=== PATIENT | male | born 1965 | race Caucasian/White ===

== ENCOUNTER 2018-08-14 14:41 | Emergency (ER) | payer BC, OTHER, SELFPAY ==
[2018-08-14 15:49] LABS: Absolute Lymphocytes (CBC) 0.8 K/uL (0.7-4.9); Absolute Monocytes 1.3 K/uL (0.1-1.3); Absolute Neutrophil 11.7 K/uL (1.8-8.0); Basophils % 0.4 % (0-1.3); Eosinophils % 0.4 % (0-4.4); Hematocrit 39.2 % (39.6-49.0); MCH 28.5 pg (27.0-35.0); MCV 83.9 fL (80-100); MPV 8.5 fL (7.6-11.3); Monocytes % 9.6 % (3.3-12.3); RBC Red Blood Cell Count 4.68 M/uL (4.33-5.43)
[2018-08-14 16:04] LABS: Protime INR 1.25
[2018-08-14 16:11] LABS: Albumin 2.7 g/dL (3.4-5.0); Bilirubin Direct 0.2 mg/dL (0-0.2); Bilirubin Total 0.6 mg/dL (0.2-1.0); Potassium 4.1 mmol/L (3.5-5.1); Protein, Total 7.3 g/dL (6.4-8.2)
[2018-08-14] MEDS ORDERED: INSULIN -REGULAR HUMAN 50 UNIT/0.5 ML ML ONE (16:39)
[2018-08-14] MEDS ORDERED: NA CHLORIDE 0.9% 1,000 ML ONE ×2 (16:40→19:39)
--- NOTE | 2018-08-14 16:47 | RAD REPORT ---
EXAM DESCRIPTION: CT - Thorax Wo Con - 08/14/2018 4:30 pm CLINICAL HISTORY: Anterior chest pain for 1 week, bypass surgery 2 months earlier COMPARISON: None. TECHNIQUE: Axial 5 mm thick images of the chest were obtained without IV contrast. All CT scans are performed using dose optimization technique as appropriate and may include automated exposure control or mA/KV adjustment according to patient size. FINDINGS: No focal mass or consolidation. Minimal atelectasis changes present in the lung bases. No pleural thickening or pleural effusion. No pneumothorax. No mediastinal or hilar lymphadenopathy. No pericardial effusion. No pericardial thickening or effusi on. No mediastinal or hilar lymphadenopathy. Sternotomy wires are in place. No fracture of the wiring. There is incomplete bony union across the s ternotomy site. Patient has soft tissue attenuation anteriorly along the sternotomy and along the manjula p margin in the anterior mediastinum. The as soft tissue is isodense to musculature. No air or foreig n body. No drainable fluid collections seen. Assessment is limited in the absence of IV contrast. No chest wall mass or abnormal axillary lymphadenopathy. IMPRESSION: Sternotomy surgical changes are present with incomplete bony union at the 2 months post surgical timeline. Prominent soft tissues along the superficial and deep margin of the sternotomy. Within this added sof t tissue there is no air, foreign body or drainable fluid collection.
[2018-08-14] MEDS ORDERED: VANCOMYCIN 1 GM/250 ML BAG ONE (17:34)
--- NOTE | 2018-08-14 17:47 | ER ---
Nurse's Notes [facility] Name: Samuel Felix Age: 53 yrs Sex: Male : 1965 Arrival Date: 08/14/2018 Time: 14:44 Bed 28 Private MD: Chencho Kang S Diagnosis: Cellulitis of chest wall;Acute kidney failure;Diabetes mellitus due to underlying condition with hyperglycemia Presentation: 08/14 14:52 Presenting complaint: Patient states: Redness and swelling to anterior chest x 1 week. hb Pt is 2 months s/p triple bypass. Transition of care: patient was not received from another setting of care. Onset of symptoms was August 09, 2018. Risk Assessment: Do you want to hurt yourself or someone else? Patient reports no desire to harm self or others. Care prior to arrival: None. 14:52 Method Of Arrival: Ambulatory hb 14:52 Acuity: OUMOU 3 hb 15:09 Initial Sepsis Screen: Does the patient meet any 2 criteria? No. Patient's initial rv sepsis screen is negative. Does the patient have a suspected source of infection? No. Patient's initial sepsis screen is negative. Historical: - Allergies: 14:54 No Known Allergies; hb - Home Meds: 17:09 Januvia oral 30mg oral 1 tab once daily [Active]; Lantus 30 Sub-Q 30 unit once a day rv [Active]; aspirin 81 mg Oral chew 1 tab once daily [Active]; - PMHx: 17:09 Diabetes - NIDDM; rv - PSHx: 14:54 Triple Bypass; hb - Immunization history:: Adult Immunizations up to date. - Social history:: Smoking status: Patient/guardian denies using tobacco. - Ebola Screening: : No symptoms or risks identified at this time. Screenin:09 Abuse screen: Denies threats or abuse. Denies injuries from another. Nutritional rv screening: No deficits noted. Tuberculosis screening: No symptoms or risk factors identified. Fall Risk None identified. Assessment: 15:06 General: Appears in no apparent distress. uncomfortable, Behavior is calm, cooperative. rv Pain: Complains of pain in chest Pain radiates to SHOULDERS. Neuro: Level of Consciousness is awake, alert, obeys commands, Oriented to person, place, time, situation. Cardiovascular: Capillary refill < 3 seconds. Respiratory: Airway is patent. GI: No signs and/or symptoms were reported involving the gastrointestinal system. : No signs and/or symptoms were reported regarding the genitourinary system. EENT: No signs and/or symptoms were reported regarding the EENT system. Derm: Skin is intact, Skin is red, Reports pain that is 10 out of 10 on a pain scale. Musculoskeletal: Reports pain in CHEST RADIATES TO SHOULDERS. 16:41 Reassessment: Patient appears in no apparent distress at this time. Patient and/or rv family updated on plan of care and expected duration. Pain level reassessed. Patient is alert, oriented x 3, equal unlabored respirations, skin warm/dry/pink. 17:35 Reassessment: Patient appears in no apparent distress at this time. Patient and/or rv family updated on plan of care and expected duration. Pain level reassessed. Patient is alert, oriented x 3, equal unlabored respirations, skin warm/dry/pink. 18:18 Reassessment: Patient appears in no apparent distress at this time. Patient and/or rv family updated on plan of care and expected duration. Pain level reassessed. Patient is alert, oriented x 3, equal unlabored respirations, skin warm/dry/pink. Vital Signs: 14:54 BP 150 / 79; Pulse 88; Resp 16; Temp 98.7; Pulse Ox 100% on R/A; Weight 96.16 kg; hb Height 6 ft. 2 in. (187.96 cm); Pain 10/10; 15:51 BP 144 / 90; Pulse 88 MON; Resp 23 S; Pulse Ox 100% on R/A; rv 16:40 BP 165 / 89; Pulse 90 MON; Resp 22 S; Pulse Ox 100% on R/A; rv 17:33 BP 170 / 103; Pulse 96 MON; Resp 24 S; Pulse Ox 99% on R/A; rv 18:17 BP 176 / 102; Pulse 96 MON; Resp 25 S; Pulse Ox 97% on R/A; rv 19:44 BP 156 / 90; Pulse 97; Resp 27 S; Pulse Ox 100% on R/A; rv 14:54 Body Mass Index 27.22 (96.16 kg, 187.96 cm) ED Course: 14:44 Patient arrived in ED. sb2 14:44 Chencho Kang MD is Private Physician. sb2 14:53 Triage completed. hb 14:54 Arm band placed on right wrist. hb 15:10 Patient has correct armband on for positive identification. Placed in gown. Bed in low rv position. Call light in reach. Side rails up X 1. Adult w/ patient. Pulse ox on. NIBP on. 15:13 Иван Nino PA is PHCP. cp 15:13 Carson Huff MD is Attending Physician. cp 15:42 Initial lab(s) drawn, by me, sent to lab. Inserted saline lock: 20 gauge in left rv forearm, using aseptic technique. Blood collected. 15:43 Radiology exam delayed due to lab results not completed at this time. (BUN/Creatinine). vr 16:[address] nj 16:31 Thorax Wo Con In Process Unspecified. EDMS 17:08 called and left a message with Dr. Marr's answering service at [phone] albino Marr to please call ED. 17:10 First set of blood cultures drawn by me. jp3 17:25 Second set of blood cultures drawn by me. Urine collected: clean catch specimen, clear, jp3 sky colored, Amount Voided: 1715mL. 17:46 Blood Culture Adult (2) Sent. jp3 17:47 called and initiated a transfer with Boo at the [facility]. eb 19:45 No provider procedures requiring assistance completed. Patient transferred, IV remains rv in place. intact. Administered Medications: 16:38 Drug: Insulin Regular Human 10 units {Co-Signature: kr2 (Love Landeros RN).} Route: IVP; rv Site: left forearm; 18:09 Follow up: Response: No adverse reaction rv 16:39 Drug: NS 0.9% 1000 ml Route: IV; Rate: 1 bolus; Site: left forearm; rv 18:09 Follow up: IV Status: Completed infusion; IV Intake: 1000ml rv 17:33 Drug: vancoMYCIN 1 grams Route: IVPB; Infused Over: 2 hrs; Site: left forearm; rv 19:44 Follow up: IV Status: Completed infusion rv 18:09 Drug: fentaNYL (PF) 50 mcg Route: IVP; Site: left forearm; rv 19:44 Follow up: Response: No adverse reaction rv 18:09 Drug: Zofran 4 mg Route: IVP; Site: left forearm; rv 19:43 Follow up: Response: No adverse reaction rv 19:43 Drug: NS 0.9% 1000 ml Route: IV; Rate: 100 ml/hr; Site: left forearm; rv 19:43 Follow up: IV Status: Infusion continued upon transfer rv Intake: 18:09 IV: 1000ml; Total: 1000ml. rv Outcome: 17:47 ER care complete, transfer ordered by cp 19:45 Transferred by ground EMS to [facility], Transfer form completed. X-rays rv sent w/ patient. 19:45 Condition: stable 19:45 Instructed on the need for transfer. 19:45 Patient left the ED. rv Addendum: 08/19/2018 11:35 Addendum: Culture Results: Positive blood culture. Phone call Attempt #1 results faxed h b to [facility] [phone]. Signatures: Dispatcher [employer] EDMS Elizabeth Lopez Corey, PA PA cp Baxter, Heather, JAIRO RN Sander Srivastava Sheri sb2 Dominique Gustafson Ronaldo, RN RN rv Otis Isaacs jp3 Love Landeros RN kr2 Corrections: (The following items were deleted from the chart) 08/14 15:52 15:51 BP 144 / 90; Pulse 88bpm; MonitorResp 27bpm; Spontaneous; Pulse Ox 100% RA; rv rv
--- NOTE | 2018-08-14 17:47 | EDPHYS ---
Physician Documentation [facility] Name: Samuel eFlix Age: 53 yrs Sex: Male : 1965 Arrival Date: 08/14/2018 Time: 14:44 Bed 28 Private MD: Chencho Kang S ED Physician Carson Huff HPI: 08/14 15:22 This 53 yrs old Male presents to ER via Ambulatory with complaints of RED cp KNOT ON CHEST. 15:22 the patient presents with a swollen area of the mid chest upper sternal area. cp 15:22 Description: erythematous, swollen, warm. Onset: The symptoms/episode began/occurred 1 cp week(s) ago. Associated signs and symptoms: Pertinent negatives: discharge, drainage, fever, shortness of breath, vomiting. Severity of symptoms: in the emergency department the symptoms are unchanged. The patient has been recently seen by a physician: the patient's primary care provider, with similar presenting complaints, X-rays were performed. Patient reports history of 3 vessel CABG done February 2018. Historical: - Allergies: 14:54 No Known Allergies; hb - Home Meds: 17:09 Januvia oral 30mg oral 1 tab once daily [Active]; Lantus 30 Sub-Q 30 unit once a day rv [Active]; aspirin 81 mg Oral chew 1 tab once daily [Active]; - PMHx: 17:09 Diabetes - NIDDM; rv - PSHx: 14:54 Triple Bypass; hb - Immunization history:: Adult Immunizations up to date. - Social history:: Smoking status: Patient/guardian denies using tobacco. - Ebola Screening: : No symptoms or risks identified at this time. ROS: 15:25 Constitutional: Negative for body aches, chills, fever. cp 15:25 Eyes: Negative for injury, pain, redness, and discharge. cp 15:25 Cardiovascular: Negative for palpitations. 15:25 Respiratory: Negative for cough, shortness of breath, wheezing. 15:25 Abdomen/GI: Negative for abdominal pain, vomiting, diarrhea, constipation. 15:25 Skin: Positive for swelling, of the chest. 15:25 All other systems are negative. Exam: 15:35 Constitutional: The patient appears in no acute distress, alert, awake, cp non-diaphoretic, non-toxic, well developed, well nourished. 15:35 Head/Face: Normocephalic, atraumatic. cp 15:35 Eyes: Periorbital structures: appear normal, Conjunctiva: normal, no exudate, no injection, Sclera: no appreciated abnormality, Lids and lashes: appear normal, bilaterally. 15:35 ENT: External ear(s): are unremarkable, Nose: is normal, Mouth: Lips: moist, Oral mucosa: moist, Posterior pharynx: Airway: no evidence of obstruction, patent. 15:35 Neck: ROM/movement: is normal, is supple, without pain, no range of motions limitations, no meningismus, no nuchal rigidity. 15:35 Chest/axilla: Inspection: cellulitis, of the mid-sternal area Palpation: crepitus, is not appreciated, tenderness, that is mild, of the mid-sternal area. 15:35 Cardiovascular: Rate: normal, Rhythm: regular, Edema: is not appreciated, JVD: is not appreciated. 15:35 Respiratory: the patient does not display signs of respiratory distress, Respirations: normal, no use of accessory muscles, no retractions, no splinting, no tachypnea, labored breathing, is not present, Breath sounds: are clear throughout, no decreased breath sounds, no stridor, no wheezing. 15:35 Abdomen/GI: Inspection: abdomen appears normal, Palpation: abdomen is soft and non-tender, in all quadrants, rebound tenderness, is not appreciated, voluntary guarding, is not appreciated, involuntary guarding, is not appreciated. 15:35 Back: pain, is absent, ROM is normal. 15:35 Neuro: Orientation: to person, place \T\ time. Mentation: lucid, able to follow commands, Cerebellar function: is grossly normal, Motor: moves all fours, strength is normal, Sensation: is normal. Vital Signs: 14:54 BP 150 / 79; Pulse 88; Resp 16; Temp 98.7; Pulse Ox 100% on R/A; Weight 96.16 kg; hb Height 6 ft. 2 in. (187.96 cm); Pain 10/10; 15:51 BP 144 / 90; Pulse 88 MON; Resp 23 S; Pulse Ox 100% on R/A; rv 16:40 BP 165 / 89; Pulse 90 MON; Resp 22 S; Pulse Ox 100% on R/A; rv 17:33 BP 170 / 103; Pulse 96 MON; Resp 24 S; Pulse Ox 99% on R/A; rv 18:17 BP 176 / 102; Pulse 96 MON; Resp 25 S; Pulse Ox 97% on R/A; rv 19:44 BP 156 / 90; Pulse 97; Resp 27 S; Pulse Ox 100% on R/A; rv 14:54 Body Mass Index 27.22 (96.16 kg, 187.96 cm) hb MDM: 15:13 Patient medically screened. cp 16:00 Differential diagnosis: abscess, cellulitis, sepsis, osteomyelitis, seroma. cp 17:30 Data reviewed: vital signs, nurses notes, lab test result(s), radiologic studies, CT cp scan, and as a result, I will transfer patient. 17:35 ED course: Spoke with PA on-call for DR Sriram Marr, [facility], concerning exam and cp results of labs and CT. Will call back to discuss further care. 08/14 15:24 Order name: Basic Metabolic Panel; Complete Time: 16:18 cp 08/14 16:18 Interpretation: Normal except: NA 131; GLUC 479; BUN 36; CRE 2.00; GFR 35. cp 08/14 15:24 Order name: CBC with Diff; Complete Time: 16:16 cp 08/14 16:16 Interpretation: Normal except: WBC 14.0; HGB 13.3; HCT 39.2; CHRISTOFER% 83.6; LYM% 6.0; NEUT cp A 11.7. 08/14 15:24 Order name: LFT's; Complete Time: 16:18 cp 08/14 16:52 Interpretation: Normal except: ALK 166; ALB 2.7; GLOB 4.6; A/G 0.6. cp 08/14 15:24 Order name: PT-INR; Complete Time: 16:16 cp 08/14 16:17 Interpretation: Abnormal: PT 14.8. 08/14 17:00 Order name: Blood Culture Adult (2) cp 08/14 17:28 Order name: Urine Dipstick--Ancillary (enter results); Complete Time: 17:55 gm 08/14 17:56 Interpretation: Normal except: UBLD TRACE; UPROT 1+. cp 08/14 16:19 Order name: Thorax Wo Con; Complete Time: 16:50 EDMS 08/14 15:24 Order name: Cardiac monitoring; Complete Time: 15:41 cp 08/14 15:24 Order name: IV Saline Lock; Complete Time: 15:41 cp 08/14 15:24 Order name: Labs collected and sent; Complete Time: 15:41 cp 08/14 15:24 Order name: O2 Per Protocol; Complete Time: 15:42 cp 08/14 15:24 Order name: O2 Sat Monitoring; Complete Time: 15:42 cp Administered Medications: 16:38 Drug: Insulin Regular Human 10 units {Co-Signature: kr2 (Love Landeros RN).} Route: IVP; rv Site: left forearm; 18:09 Follow up: Response: No adverse reaction rv 16:39 Drug: NS 0.9% 1000 ml Route: IV; Rate: 1 bolus; Site: left forearm; rv 18:09 Follow up: IV Status: Completed infusion; IV Intake: 1000ml rv 17:33 Drug: vancoMYCIN 1 grams Route: IVPB; Infused Over: 2 hrs; Site: left forearm; rv 19:44 Follow up: IV Status: Completed infusion rv 18:09 Drug: fentaNYL (PF) 50 mcg Route: IVP; Site: left forearm; rv 19:44 Follow up: Response: No adverse reaction rv 18:09 Drug: Zofran 4 mg Route: IVP; Site: left forearm; rv 19:43 Follow up: Response: No adverse reaction rv 19:43 Drug: NS 0.9% 1000 ml Route: IV; Rate: 100 ml/hr; Site: left forearm; rv 19:43 Follow up: IV Status: Infusion continued upon transfer rv Disposition: 08/15 10:09 Co-signature as Attending Physician, Carson Huff MD I agree with the assessment and kdr plan of care. Disposition: 08/14/18 17:47 Transfer ordered to [facility]. Diagnosis are Cellulitis of chest wall, Acute kidney failure, Diabetes mellitus due to underlying condition with hyperglycemia. - Reason for transfer: Higher level of care. - Accepting physician is DR En Drake. - Condition is Stable. - Problem is new. - Symptoms have improved. Signatures: Dispatcher [employer] EDHI Carson Huff MD MD kdr Page, Corey, PA PA cp Bridgett Solomon RN RN Lopez Walters RN RN rv Love Landeros RN kr2 Corrections: (The following items were deleted from the chart) 08/14 16:19 15:24 Thorax W/ Con+CT.RAD.BRZ ordered. EDHI EDMS 17:48 17:47 08/14/2018 17:47 Transfer ordered to [facility]. Diagnosis is cp Cellulitis of chest wall. Reason for transfer: Higher level of care. Accepting physician is DR En Drake. Condition is Stable. Problem is new. Symptoms have improved. cp 19:45 17:48 08/14/2018 17:47 Transfer ordered to [facility]. Diagnosis is rv Cellulitis of chest wall; Acute kidney failure; Diabetes mellitus due to underlying condition with hyperglycemia. Reason for transfer: Higher level of care. Accepting physician is DR En Drake. Condition is Stable. Problem is new. Symptoms have improved. cp
[2018-08-14 17:54] LABS: Urine Blood TRACE (NEG); Urine Glucose 3+ (NEG); Urine Protein 1+ (NEG); Urine pH 5.5 (5.0-7.0)
[2018-08-14] MEDS ORDERED: FENTANYL CITR 100 MCG/2 ML ONE (18:13)
[2018-08-14] MEDS ORDERED: ONDANSETRON 4 MG/2 ML VIAL ONE (18:13)
== END 2018-08-14 19:45 | disposition short-term general hospital (02) ==
LOC: ER 14:41
DX: L03.313 Cellulitis of chest wall (principal); N17.9 Acute kidney failure, unspecified; E11.65 Type 2 diabetes mellitus with hyperglycemia; Z79.4 Long term (current) use of insulin; Z79.82 Long term (current) use of aspirin; Z95.1 Presence of aortocoronary bypass graft
CPT/HCPCS: 36415; 71250; 80048; 80076; 81003; 82962; 85025; 85610; 87040; 87077; 87186; 87205; 96361; 96365; 96366; 96375; 99285; J2405; J3010; J3370; J7030

== ENCOUNTER 2023-03-10 07:47 | Emergency (ER) | payer BC ==
--- OUTSIDE RECORDS SUMMARY | 2023-03-10 07:52 | XMS REPORT | Continuity of Care Document ---
:1965 Author Organization [facility] t Address [address] [facility] [address] [place] [address] Care Team Providers Name Role Phone Prince Collazo MD Primary Care Physician PRINCE COLLAZO Attending Clinician Unavailable Vale KING, Prince Attending Clinician 2, [facility] Attending Clinician Unavailable Johnny Branch MD Attending Clinician Doctor Unassigned, [place] Attending Clinician Unavailable Payers Payer Name Policy Type Policy Number Effective Date Expiration Date S [facility] [id number] 2015 00:00:00 Problems Condition Condition Condition Status Onset Resolution Last Treating Co mments Source Name Details Category Date Date Treatment Clinician Date Abscess of Abscess of Disease Active 2017-10 M ethodi sternal sternal 10-14 region region 00:00: Hospita 00 l Atelectasi Atelectasi Disease Active 2018-0 M ethodi s s 05-06 00:00: Hospita 00 l S/P CABG x S/P CABG x Disease Active 0 M ethodi 3 3 05-05 00:00: Hospita 00 l CKD CKD Disease Active Methodi (chronic (chronic 05-05 kidney kidney 00:00: Hospita disease) disease) 00 l stage 2, stage 2, GFR 60-89 GFR 60-89 ml/min ml/min Thrombocyt Thrombocyt Disease Active 2017-0 M ethodi openia openia 05-05 00:00: Hospita 00 l Postoperat Postoperat Disease Active M ethodi angelo anemia angelo anemia 05-05 st due to due to 00:00: Hospita acute acute 00 l blood loss blood loss 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 05-04 st mellitus mellitus 00:00: Hospit a with with 00 l nephropath nephropath y y Mixed Mixed Disease Active Methodi hyperlipid hyperlipid 05-04 st emia emia 00:00: Hospita 00 l 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 05-03 st mellitus mellitus 00:00: Hospit a with with 00 l hyperglyce hyperglyce jinny jinny 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 [place] [facility] [place] [facility] 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 Essential Essential Disease Active Met hodi hypertensi hypertensi 05-03 st on on 00:00: Hospita 00 l SOB SOB Disease Active Methodi (shortness (shortness 05-02 st of breath) of breath) 00:00: Ho spita 00 l Abnormal Abnormal Disease Active Unive rs EKG EKG 06-07 ity of 00:00: [place] [address] Medical Branch Essential Essential Disease Active Uni vers hypertensi hypertensi 06-07 it y of on on 00:00: [place] [address] Medical Branch Dizziness Dizziness Disease Active Uni vers 06-07 ity of 00:00: [place] [address] Medical Branch Diabetes Diabetes Disease Active Unive rs 09 ity of 00:00: [place] [address] Medical Branch Allergies, Adverse Reactions, Alerts Allergy Allergy Status Severity Reaction(s) Onset Inactive Treating Comm ents Source Name Type Date Date Clinician NO KNOWN Drug Active Univers ALLERGIE Class ity of [facility] Social History Social Habit Start Date Stop Date Quantity Comments Source History SDOH University o f Alcohol Frequency [place] [facility] History SDPA University o f Alcohol Std Drinks [facility] History [facility] University o f Alcohol Binge [facility] [place] [facility] Gender identity [facility] Sexual orientation [facility] History of tobacco Current smoker [facility] Exposure to 2023-01-21 2023-01-31 Not sure University of SARS-CoV-2 (event) 00:00:00 06:50:00 [facility] History of Social 2019-05-28 2019-05-[address] function 00:00:00 00:00:00 Hospital Alcohol intake 2018-09-10 2018-09-10 Current drinker [facility] Alcohol Comment 2018-05-01 2018-05-01 "social drinker" Met [facility] 00:00:00 00:00:00 Hospital Tobacco use and 2016-02-13 2016-02-13 Smokeless Universit y of exposure 00:00:00 00:00:00 tobacco non-user [facility] [place] [facility] Sex Ass[birth year] [facility] 00:[facility]00 Hospital Smoking Status Start Date Stop Date Source Ex-smoker 2018-09-10 00:00:00 2018-09-10 00:00:00 [facility] Never smoked tobacco [facility] Medications Ordered Filled Start Stop Current Ordering Indication Dosage Frequency Signature Comments Components Source Medication Medication Date Date Medication? Clinician (SIG) Name Name SITagliptin Yes [id number] 50mg Take 1 Univers phosphate 5-25 tablet by ity o f (JANUVIA) 00:00: mouth [place] 50 mg 00 every Medical tablet morning. Branch MUST BE SEEN FOR FURTHER REFILLS AND LABS glimepiride 2022-0 Yes [id number] 4mg Take 1 Univers 4 mg tablet 5-25 tablet by ity of 00:00: mouth [place] 00 daily with Medical breakfast. Branch MUST BE SEEN FOR FURTHER REFILLS AND LABS SITagliptin 2022-0 Yes [id number] 50mg Take 1 Univers phosphate 4-27 tablet by ity o f (JANUVIA) 00:00: mouth [place] 50 mg 00 every Medical tablet morning. Branch MUST BE SEEN FOR FURTHER REFILLS AND LABS metoprolol 2022-0 Yes [id number] 25mg Take 1 U nivers tartrate 25 4-27 tablet by ity of mg tablet 00:00: [place] 00 the Medical morning Branch and 1 tablet in the evening. glimepiride 2022-0 Yes [id number] 4mg Take 1 Univers 4 mg tablet 4-27 tablet by ity of 00:00: mouth [place] 00 daily with Medical breakfast. Branch MUST BE SEEN FOR FURTHER REFILLS AND LABS dapaglifloz 2023-0 Yes [id number] 10mg Take 1 Univers in 4-27 tablet by ity of (FARXIGA) 00:00: [place] 10 mg 00 the Medical tablet morning. Branch SITagliptin 2023-0 Yes [id number] 50mg Take 1 Univers phosphate 4-27 tablet by ity o f (OCTUVIA) 00:00: mouth [place] 50 mg 00 every Medical tablet morning. Branch MUST BE SEEN FOR FURTHER REFILLS AND LABS metoprolol 2023-0 Yes [id number] 25mg Take 1 U nivers tartrate 25 4-27 tablet by ity of mg tablet 00:00: [place] 00 the Medical morning Branch and 1 tablet in the evening. glimepiride 2023-0 Yes [id number] 4mg Take 1 Univers 4 mg tablet 4-27 tablet by ity of 00:00: mouth [place] 00 daily with Medical breakfast. Branch MUST BE SEEN FOR FURTHER REFILLS AND LABS dapaglifloz 2023-0 Yes [id number] 10mg Take 1 Univers in 4-27 tablet by ity of (FARXIGA) 00:00: mouth [place] 10 mg 00 the Medical tablet morning. Branch metoprolol 3-0 Yes [id number] 25mg Take 1 U nivers tartrate 25 4-27 tablet by ity of mg tablet 00:00: [place] 00 the Medical morning Branch and 1 tablet in the evening. dapaglifloz 2023-0 Yes [id number] 10mg Take 1 Univers in 4-27 tablet by ity of (FARXIGA) 00:00: [place] 10 mg 00 the Medical tablet morning. Branch SITagliptin 2023-0 Yes [id number] 50mg Take 1 Univers phosphate 4-27 tablet by ity o f (OCTUVIA) 00:00: mouth [place] 50 mg 00 every Medical tablet morning. Branch MUST BE SEEN FOR FURTHER REFILLS AND LABS metoprolol 3-0 Yes [id number] 25mg Take 1 U nivers tartrate 25 4-27 tablet by ity of mg tablet 00:00: mouth [place] 00 the Medical morning Branch and 1 tablet in the evening. glimepiride 2023-0 Yes [id number] 4mg Take 1 Univers 4 mg tablet 4-27 tablet by ity of 00:00: mouth [place] 00 daily with Medical breakfast. Branch MUST BE SEEN FOR FURTHER REFILLS AND LABS dapaglifloz 2022-0 Yes [id number] 10mg Take 1 Univers in 4-27 tablet by ity of (XI) 00:00: mouth [place] 10 mg 00 the Medical tablet morning. Branch SITagliptin 2022-0 2023- No [id number] 50mg Take 1 Univers phosphate 4-27 05-25 tablet by ity of (OCTUVIA) 00:00: 00:00 mouth [place] 50 mg 00 :00 every Medical tablet morning. Branch MUST BE SEEN FOR FURTHER REFILLS AND LABS glimepiride 2022-0 2022- No [id number] 4mg Take 1 Univers 4 mg tablet 4-27 05-25 tablet by it y of 00:00: 00:00 mouth [place] 00 :00 daily with Medical breakfast. Branch MUST BE SEEN FOR FURTHER REFILLS AND LABS glimepiride 2022-0 Yes [id number] 4mg Take 1 Univers 4 mg tablet 4-19 tablet by ity of 00:00: mouth [place] 00 daily with Medical breakfast. Branch MUST BE SEEN FOR FURTHER REFILLS AND LABS SITagliptin 2022-0 Yes [id number] 50mg Take 1 Univers phosphate 4-19 tablet by ity o f (OCTUVIA) 00:00: mouth [place] 50 mg 00 every Medical tablet morning. Branch MUST BE SEEN FOR FURTHER REFILLS AND LABS glimepiride 2022-0 Yes [id number] 4mg Take 1 Univers 4 mg tablet 4-19 tablet by ity of 00:00: mouth [place] 00 daily with Medical breakfast. Branch MUST BE SEEN FOR FURTHER REFILLS AND LABS SITagliptin 2022-0 Yes [id number] 50mg Take 1 Univers phosphate 4-19 tablet by ity o f (OCTUVIA) 00:00: mouth [place] 50 mg 00 every Medical tablet morning. Branch MUST BE SEEN FOR FURTHER REFILLS AND LABS glimepiride 2022-0 Yes [id number] 4mg Take 1 Univers 4 mg tablet 4-19 tablet by ity of 00:00: mouth [place] 00 daily with Medical breakfast. Branch MUST BE SEEN FOR FURTHER REFILLS AND LABS SITagliptin 2022-0 Yes [id number] 50mg Take 1 Univers phosphate 4-19 tablet by ity o f (OCTUVIA) 00:00: mouth [place] 50 mg 00 every Medical tablet morning. Branch MUST BE SEEN FOR FURTHER REFILLS AND LABS glimepiride 2022- No [id number] 4mg Take 1 Univers 4 mg tablet 01-23 tablet by it y of 00:00: 00:00 mouth [place] 00 :00 daily with Medical breakfast. Branch MUST BE SEEN FOR FURTHER REFILLS AND LABS SITagliptin 2022- No [id number] 50mg Take 1 Univers phosphate 01-23 tablet by ity of (JANUVIA) 00:00: 00:00 mouth [place] 50 mg 00 :00 every Medical tablet morning. Branch MUST BE SEEN FOR FURTHER REFILLS AND LABS glimepiride 2022- No [id number] 4mg Take 1 Univers 4 mg tablet 01-23 tablet by it y of 00:00: 00:00 mouth [place] 00 :00 daily with Medical breakfast. Branch MUST BE SEEN FOR FURTHER REFILLS AND LABS SITagliptin 2022- No [id number] 50mg Take 1 Univers phosphate 01-23 tablet by ity of (JANUVIA) 00:00: 00:00 mouth [place] 50 mg 00 :00 every Medical tablet morning. Branch MUST BE SEEN FOR FURTHER REFILLS AND LABS METOPROLOL 0 Yes [id number] TAKE 1 U nivers TARTRATE 25 3-08 TABLET BY ity of mg tablet 00:00: MOUTH [place] 00 TWICE Medical DAILY Branch METOPROLOL 2022-0 Yes [id number] TAKE 1 U nivers TARTRATE 25 3-08 TABLET BY ity of mg tablet 00:00: MOUTH 00 TWICE Medical DAILY Branch METOPROLOL 2022-0 Yes [id number] TAKE 1 U nivers TARTRATE 25 3-08 TABLET BY ity of mg tablet 00:00: MOUTH [place] 00 TWICE Medical DAILY Branch METOPROLOL 2022-0 Yes [id number] TAKE 1 U nivers TARTRATE 25 3-08 TABLET BY ity of mg tablet 00:00: MOUTH [place] 00 TWICE Medical DAILY Branch METOPROLOL 2022-0 Yes [id number] TAKE 1 U nivers TARTRATE 25 3-08 TABLET BY ity of mg tablet 00:00: MOUTH 00 TWICE Medical DAILY Branch METOPROLOL 2022-0 202- No [id number] TAKE 1 Univers TARTRATE 25 3-08 04-27 TABLET BY it y of mg tablet 00:00: 00:00 MOUTH [place] 00 :00 TWICE Medical DAILY Branch METOPROLOL 2022-0 3- No [id number] TAKE 1 Univers TARTRATE 25 3-05 10-27 TABLET BY it y of mg tablet 00:00: 00:00 MOUTH [place] 00 :00 TWICE Medical DAILY Branch GLIMEPIRIDE 2022-0 Yes [id number] 4mg TAKE 1 Univers 4 mg tablet 1-18 TABLET BY ity of 00:00: MOUTH [place] 00 DAILY WITH Medical BREAKFAST Branch [place] [address] 2022-0 Yes [id number] TAKE 1 U nivers mg tablet 1-18 TABLET BY ity o f 00:00: MOUTH [place] 00 EVERY Medical MORNING Branch GLIMEPIRIDE 2022-0 Yes [id number] 4mg TAKE 1 Univers 4 mg tablet 1-18 TABLET BY ity of 00:00: MOUTH [place] 00 DAILY WITH Medical BREAKFAST Branch [place] [address] 2022-0 Yes [id number] TAKE 1 U nivers mg tablet 1-18 TABLET BY ity o f 00:00: MOUTH [place] 00 EVERY Medical MORNING Branch GLIMEPIRIDE 2022-0 Yes [id number] 4mg TAKE 1 Univers 4 mg tablet 1-18 TABLET BY ity of 00:00: MOUTH [place] 00 DAILY WITH Medical BREAKFAST Branch [place] [address] 0 Yes [id number] TAKE 1 U nivers mg tablet 1-18 TABLET BY ity o f 00:00: MOUTH [place] 00 EVERY Medical MORNING Branch GLIMEPIRIDE 2022-0 2022- No [id number] 4mg TAKE 1 Univers 4 mg tablet 1-18 04-19 TABLET BY it y of 00:00: 00:00 MOUTH [place] 00 :00 DAILY WITH Medical BREAKFAST Branch [place] [address] 2022-0 202- No [id number] TAKE 1 Univers mg tablet 1-18 04-19 TABLET BY ity of 00:00: 00:00 MOUTH [place] 00 :00 EVERY Medical MORNING Branch GLIMEPIRIDE 2021-10 Yes [id number] 4mg TAKE 1 Univers 4 mg tablet 0-17 TABLET BY ity of 00:00: MOUTH [place] 00 DAILY WITH Medical BREAKFAST Branch [place] [address] 2021-10 Yes [id number] TAKE 1 U nivers mg tablet 0-17 TABLET BY ity o f 00:00: MOUTH [place] 00 EVERY Medical MORNING Branch GLIMEPIRIDE 2021-10- No [id number] 4mg TAKE 1 Univers 4 mg tablet 0-17 -18 TABLET BY it y of 00:00: 00:00 MOUTH [place] 00 :00 DAILY WITH Medical BREAKFAST Branch SHAILESH 50 2021-10- No [id number] TAKE 1 Univers mg tablet 0-17 -18 TABLET BY ity of 00:00: 00:00 MOUTH [place] 00 :00 EVERY Medical MORNING Branch GLIMEPIRIDE 0 Yes [id number] 4mg TAKE 1 Univers 4 mg tablet -19 TABLET BY ity of 00:00: MOUTH [place] 00 DAILY WITH Medical BREAKFAST Branch SHAGGYSILVINA 50 0 Yes [id number] TAKE 1 U nivers mg tablet 7-19 TABLET BY ity o f 00:00: MOUTH [place] 00 EVERY Medical MORNING Branch GLIMEPIRIDE 2021- No [id number] 4mg TAKE 1 Univers 4 mg tablet 04-24 TABLET BY it y of 00:00: 00:00 MOUTH [place] 00 :00 DAILY WITH Medical BREAKFAST Branch SHAILESH 2021- No [id number] TAKE 1 Univers mg tablet 04-24 TABLET BY ity of 00:00: 00:00 MOUTH [place] 00 :00 EVERY Medical MORNING Branch METOPROLOL 0 Yes [id number] TAKE 1 U nivers TARTRATE 25 4-27 TABLET BY ity of mg tablet 00:00: MOUTH [place] 00 TWICE Medical DAILY Branch METOPROLOL 0 Yes [id number] TAKE 1 U nivers TARTRATE 25 4-27 TABLET BY ity of mg tablet 00:00: MOUTH [place] 00 TWICE Medical DAILY Branch METOPROLOL 2021-0 Yes [id number] TAKE 1 U nivers TARTRATE 25 4-27 TABLET BY ity of mg tablet 00:00: MOUTH [place] 00 TWICE Medical DAILY Branch METOPROLOL 2021-0 Yes [id number] TAKE 1 U nivers TARTRATE 25 4-27 TABLET BY ity of mg tablet 00:00: MOUTH [place] 00 TWICE Medical DAILY Branch METOPROLOL 2021-0 Yes [id number] TAKE 1 U nivers TARTRATE 25 4-27 TABLET BY ity of mg tablet 00:00: MOUTH [place] 00 TWICE Medical DAILY Branch METOPROLOL 2021-0 Yes [id number] TAKE 1 U nivers TARTRATE 25 4-27 TABLET BY ity of mg tablet 00:00: MOUTH [place] 00 TWICE Medical DAILY Branch METOPROLOL 0 2022- No [id number] TAKE 1 Univers TARTRATE 25 4-27 03-08 TABLET BY it y of mg tablet 00:00: 00:00 MOUTH [place] 00 :00 TWICE Medical DAILY Branch SHAGGYUVIA 50 0 Yes [id number] TAKE 1 U nivers mg tablet 4-20 TABLET BY ity o f 00:00: MOUTH [place] 00 EVERY Medical MORNING Branch GLIMEPIRIDE 0 Yes [id number] 4mg TAKE 1 Univers 4 mg tablet 4-20 TABLET BY ity of 00:00: MOUTH [place] 00 DAILY WITH Medical BREAKFAST Branch [facility] 50 Yes [id number] TAKE 1 U nivers mg tablet 4-20 TABLET BY ity o f 00:00: MOUTH [place] 00 EVERY Medical MORNING Branch GLIMEPIRIDE 0 Yes [id number] 4mg TAKE 1 Univers 4 mg tablet 4-20 TABLET BY ity of 00:00: MOUTH [place] 00 DAILY WITH Medical BREAKFAST Branch [facility] 50 0 Yes [id number] TAKE 1 U nivers mg tablet 4-20 TABLET BY ity o f 00:00: MOUTH [place] 00 EVERY Medical MORNING Branch GLIMEPIRIDE 0 Yes [id number] 4mg TAKE 1 Univers 4 mg tablet 4-20 TABLET BY ity of 00:00: MOUTH [place] 00 DAILY WITH Medical BREAKFAST Branch [facility] 50 0 Yes [id number] TAKE 1 U nivers mg tablet 4-20 TABLET BY ity o f 00:00: MOUTH [place] 00 EVERY Medical MORNING Branch GLIMEPIRIDE 0 Yes [id number] 4mg TAKE 1 Univers 4 mg tablet 4-20 TABLET BY ity of 00:00: MOUTH [place] 00 DAILY WITH Medical BREAKFAST Branch [facility] 50 0 2021- No [id number] TAKE 1 Univers mg tablet 4-20 -19 TABLET BY ity of 00:00: 00:00 MOUTH [place] 00 :00 EVERY Medical MORNING Branch GLIMEPIRIDE 2021-0 2021- No [id number] 4mg TAKE 1 Univers 4 mg tablet 4-20 -19 TABLET BY it y of 00:00: 00:00 MOUTH [place] 00 :00 DAILY WITH Medical BREAKFAST Branch METOPROLOL 2021-0 Yes [id number] TAKE 1 U nivers TARTRATE 25 1-07 TABLET BY ity of mg tablet 00:00: MOUTH [place] 00 TWICE Medical DAILY Branch METOPROLOL 2021-0 Yes [id number] TAKE 1 U nivers TARTRATE 25 1-07 TABLET BY ity of mg tablet 00:00: MOUTH [place] 00 TWICE Medical DAILY Branch METOPROLOL 2021-0 Yes [id number] TAKE 1 U nivers TARTRATE 25 1-07 TABLET BY ity of mg tablet 00:00: MOUTH [place] 00 TWICE Medical DAILY Branch METOPROLOL 2021-0 Yes [id number] TAKE 1 U nivers TARTRATE 25 1-07 TABLET BY ity of mg tablet 00:00: MOUTH [place] 00 TWICE Medical DAILY Branch METOPROLOL 0 Yes [id number] TAKE 1 U nivers TARTRATE 25 1-07 TABLET BY ity of mg tablet 00:00: MOUTH [place] 00 TWICE Medical DAILY Branch METOPROLOL 0 Yes [id number] TAKE 1 U nivers TARTRATE 25 1-07 TABLET BY ity of mg tablet 00:00: MOUTH [place] 00 TWICE Medical DAILY Branch METOPROLOL 0 Yes [id number] TAKE 1 U nivers TARTRATE 25 1-07 TABLET BY ity of mg tablet 00:00: MOUTH [place] 00 TWICE Medical DAILY Branch METOPROLOL 0 Yes [id number] TAKE 1 U nivers TARTRATE 25 1-07 TABLET BY ity of mg tablet 00:00: MOUTH [place] 00 TWICE Medical DAILY Branch METOPROLOL 0 Yes [id number] TAKE 1 U nivers TARTRATE 25 1-07 TABLET BY ity of mg tablet 00:00: MOUTH [place] 00 TWICE Medical DAILY Branch METOPROLOL 2021-0 2022- No [id number] TAKE 1 Univers TARTRATE 25 1-07 03-08 TABLET BY it y of mg tablet 00:00: 00:00 MOUTH [place] 00 :00 TWICE Medical DAILY Branch SITagliptin 2020-10 Yes [id number] 50mg Take 1 Univers (JANUVIA) 0-04 tablet by ity o f 50 mg 00:00: mouth [place] tablet 00 every Medical morning. Branch metoprolol 2020-10 Yes [id number] 25mg Take 1 U nivers tartrate 25 0-04 tablet by ity of mg tablet 00:00: mouth 2 [place] 00 (two) Medical times Branch daily. glimepiride 2020-10 Yes [id number] 4mg Take 1 Univers 4 mg tablet 0-04 tablet by ity of 00:00: mouth [place] 00 daily with Medical breakfast. Branch dapaglifloz 2020-10 Yes [id number] 10mg Take 1 Univers in 0-04 tablet by ity of () 00:00: mouth [place] 10 mg 00 daily. Medical tablet Branch SITagliptin 2020-10 Yes [id number] 50mg Take 1 Univers (JANUVIA) 0-04 tablet by ity o f 50 mg 00:00: mouth [place] tablet 00 every Medical morning. Branch glimepiride 2020-10 Yes [id number] 4mg Take 1 Univers 4 mg tablet 0-04 tablet by ity of 00:00: mouth [place] 00 daily with Medical breakfast. Branch dapaglifloz 2020-10 Yes [id number] 10mg Take 1 Univers in 0-04 tablet by ity of () 00:00: mouth [place] 10 mg 00 daily. Medical tablet Branch dapaglifloz 2020-10 Yes [id number] 10mg Take 1 Univers in 0-04 tablet by ity of () 00:00: mouth [place] 10 mg 00 daily. Medical tablet Branch dapaglifloz 2020-10 Yes [id number] 10mg Take 1 Univers in 0-04 tablet by ity of () 00:00: mouth [place] 10 mg 00 daily. Medical tablet Branch dapaglifloz 2020-10 Yes [id number] 10mg Take 1 Univers in 0-04 tablet by ity of () 00:00: mouth [place] 10 mg 00 daily. Medical tablet Branch dapaglifloz 2020-10 Yes [id number] 10mg Take 1 Univers in 0-04 tablet by ity of () 00:00: mouth [place] 10 mg 00 daily. Medical tablet Branch dapaglifloz 2020-10 Yes [id number] 10mg Take 1 Univers in 0-04 tablet by ity of () 00:00: mouth [place] 10 mg 00 daily. Medical tablet Branch dapaglifloz 2020-10 Yes [id number] 10mg Take 1 Univers in 0-04 tablet by ity of () 00:00: mouth [place] 10 mg 00 daily. Medical tablet Branch dapaglifloz 2020-10 Yes [id number] 10mg Take 1 Univers in 0-04 tablet by ity of () 00:00: mouth [place] 10 mg 00 daily. Medical tablet Branch dapaglifloz 2020-10 Yes [id number] 10mg Take 1 Univers in 0-04 tablet by ity of () 00:00: mouth [place] 10 mg 00 daily. Medical tablet Branch dapaglifloz 2020-10 Yes [id number] 10mg Take 1 Univers in 0-04 tablet by ity of () 00:00: mouth [place] 10 mg 00 daily. Medical tablet Branch dapaglifloz 2020-10 Yes [id number] 10mg Take 1 Univers in 0-04 tablet by ity of () 00:00: mouth [place] 10 mg 00 daily. Medical tablet Branch dapaglifloz 2020-10 Yes [id number] 10mg Take 1 Univers in 0-04 tablet by ity of () 00:00: mouth [place] 10 mg 00 daily. Medical tablet Branch dapaglifloz 2020-10 Yes [id number] 10mg Take 1 Univers in 0-04 tablet by ity of () 00:00: mouth [place] 10 mg 00 daily. Medical tablet Branch dapaglifloz 2020-10 Yes [id number] 10mg Take 1 Univers in 0-04 tablet by ity of () 00:00: mouth [place] 10 mg 00 daily. Medical tablet Branch dapaglifloz 2020-10- No [id number] 10mg Take 1 Univers in 0-04 04-27 tablet by ity of () 00:00: 00:00 mouth [place] 10 mg 00 :00 daily. Medical tablet Branch dapaglifloz 2020-10- No [id number] 10mg Take 1 Univers in 0-04 04-27 tablet by ity of () 00:00: 00:00 mouth [place] 10 mg 00 :00 daily. Medical tablet Branch SITagliptin 2020-10- No [id number] 50mg Take 1 Univers (JANUVIA) 0-04 04-20 tablet by ity of 50 mg 00:00: 00:00 mouth [place] tablet 00 :00 every Medical morning. Branch glimepiride 2020-10- No [id number] 4mg Take 1 Univers 4 mg tablet 0-04 04-20 tablet by it y of 00:00: 00:00 mouth [place] 00 :00 daily with Medical breakfast. Branch metoprolol 2020-10- No [id number] 25mg Take 1 Univers tartrate 25 0-04 -07 tablet by it y of mg tablet 00:00: 00:00 mouth [place] 00 :[place] (two) Medical times Branch daily. SITagliptin 2020- No [id number] 50mg Take 1 Univers (JANUVIA) -30 07- tablet by ity of 50 mg 00:00: 00:00 mouth [place] tablet 00 :00 every Medical morning. Branch metoprolol 2020- No [id number] 25mg Take 1 Univers tartrate 25 -30 07- tablet by it y of mg tablet 00:00: 00:00 mouth 2 [place] 00 :00 (two) Medical times Branch daily. GLIMEPIRIDE 2020- No 4mg TAKE 1 Uni vers 4 mg tablet 06-23 TABLET BY it y of 00:00: 00:00 MOUTH [place] 00 :00 DAILY WITH Medical BREAKFAST Branch dapaglifloz 2020- No [id number] 10mg Take 1 Univers in 04-25- tablet by ity of (FARXIGA) 00:00: 00:00 mouth [place] 10 mg 00 :00 daily. Medical tablet Branch METOPROLOL Yes [id number] TAKE 1 U nivers TARTRATE 25 5-10 TABLET BY ity of mg tablet 00:00: MOUTH [place] 00 TWICE Medical DAILY Branch METOPROLOL Yes [id number] TAKE 1 U nivers TARTRATE 25 5-10 TABLET BY ity of mg tablet 00:00: MOUTH [place] 00 TWICE Medical DAILY Branch METOPROLOL 0 Yes [id number] TAKE 1 U nivers TARTRATE 25 5-10 TABLET BY ity of mg tablet 00:00: MOUTH [place] 00 TWICE Medical DAILY Branch METOPROLOL 0 Yes [id number] TAKE 1 U nivers TARTRATE 25 5-10 TABLET BY ity of mg tablet 00:00: MOUTH [place] 00 TWICE Medical DAILY Branch METOPROLOL Yes [id number] TAKE 1 U nivers TARTRATE 25 5-10 TABLET BY ity of mg tablet 00:00: MOUTH [place] 00 TWICE Medical DAILY Branch METOPROLOL 0 Yes [id number] TAKE 1 U nivers TARTRATE 25 5-10 TABLET BY ity of mg tablet 00:00: MOUTH [place] 00 TWICE Medical DAILY Branch METOPROLOL 0 Yes [id number] TAKE 1 U nivers TARTRATE 25 5-10 TABLET BY ity of mg tablet 00:00: MOUTH [place] TWICE Medical DAILY Branch METOPROLOL 0 Yes [id number] TAKE 1 U nivers TARTRATE 25 5-10 TABLET BY ity of mg tablet 00:00: MOUTH [place] 00 TWICE Medical DAILY Branch METOPROLOL 0 Yes [id number] TAKE 1 U nivers TARTRATE 25 5-10 TABLET BY ity of mg tablet 00:00: MOUTH TWICE Medical DAILY Branch METOPROLOL 0 Yes [id number] TAKE 1 U nivers TARTRATE 25 5-10 TABLET BY ity of mg tablet 00:00: MOUTH TWICE Medical DAILY Branch METOPROLOL 0 2022- No [id number] TAKE 1 Univers TARTRATE 25 5-10 03-08 TABLET BY it y of mg tablet 00:00: 00:00 MOUTH [place] 00 :00 TWICE Medical DAILY Branch dulaglutide 0 2020- No [id number] .5mL inject 0.5 Univers (TRULICITY) 2-24 10-04 mL under ity of 1.5 mg/0.5 00:00: 00:00 [place] mL PnIj 00 :00 weekly. Medical Branch HYDROcodone 2019-0 Yes [id number] 1{tbl} Take 1 Univers -acetaminop 1-07 tablet by ity of hen 7.5-325 00:00: mouth [place] mg per 00 every 6 Medical tablet (six) Branch hours as needed for Pain. HYDROcodone 2019-0 Yes [id number] 1{tbl} Take 1 Univers -acetaminop 1-07 tablet by ity of hen 7.5-325 00:00: mouth [place] mg per 00 every 6 Medical tablet (six) Branch hours as needed for Pain. HYDROcodone 0 Yes [id number] 1{tbl} Take 1 Univers -acetaminop 1-07 tablet by ity of hen 7.5-325 00:00: mouth [place] mg per 00 every 6 Medical tablet (six) Branch hours as needed for Pain. HYDROcodone 0 Yes [id number] 1{tbl} Take 1 Univers -acetaminop 1-07 tablet by ity of hen 7.5-325 00:00: mouth [place] mg per 00 every 6 Medical tablet (six) Branch hours as needed for Pain. HYDROcodone 2020-0 Yes [id number] 1{tbl} Take 1 Univers -acetaminop 1-07 tablet by ity of hen 7.5-325 00:00: mouth [place] mg per 00 every 6 Medical tablet (six) Branch hours as needed for Pain. HYDROcodone 2020-0 Yes [id number] 1{tbl} Take 1 Univers -acetaminop 1-07 tablet by ity of hen 7.5-325 00:00: mouth [place] mg per 00 every 6 Medical tablet (six) Branch hours as needed for Pain. HYDROcodone 2020-0 Yes [id number] 1{tbl} Take 1 Univers -acetaminop 1-07 tablet by ity of hen 7.5-325 00:00: mouth [place] mg per 00 every 6 Medical tablet (six) Branch hours as needed for Pain. HYDROcodone 2020-0 Yes [id number] 1{tbl} Take 1 [facility] -acetaminop 1-07 tablet by ity of hen 7.5-325 00:00: mouth [place] mg per 00 every 6 Medical tablet (six) Branch hours as needed for Pain. HYDROcodone 2020-0 Yes [id number] 1{tbl} Take 1 [facility] -acetaminop 1-07 tablet by ity of hen 7.5-325 00:00: mouth [place] mg per 00 every 6 Medical tablet (six) Branch hours as needed for Pain. HYDROcodone 2020-0 Yes [id number] 1{tbl} Take 1 [facility] -acetaminop 1-07 tablet by ity of hen 7.5-325 00:00: mouth [place] mg per 00 every 6 Medical tablet (six) Branch hours as needed for Pain. HYDROcodone 2020-0 Yes [id number] 1{tbl} Take 1 [facility] -acetaminop 1-07 tablet by ity of hen 7.5-325 00:00: mouth [place] mg per 00 every 6 Medical tablet (six) Branch hours as needed for Pain. HYDROcodone 2020-0 Yes [id number] 1{tbl} Take 1 [facility] -acetaminop 1-07 tablet by ity of hen 7.5-325 00:00: mouth [place] mg per 00 every 6 Medical tablet (six) Branch hours as needed for Pain. HYDROcodone Yes [id number] 1{tbl} Take 1 [facility] -acetaminop 1-07 tablet by ity of hen 7.5-325 00:00: mouth [place] mg per 00 every 6 Medical tablet (six) Branch hours as needed for Pain. HYDROcodone Yes [id number] 1{tbl} Take 1 [facility] -acetaminop 1-07 tablet by ity of hen 7.5-325 00:00: mouth [place] mg per 00 every 6 Medical tablet (six) Branch hours as needed for Pain. HYDROcodone Yes [id number] 1{tbl} Take 1 [facility] -acetaminop 1-07 tablet by ity of hen 7.5-325 00:00: mouth [place] mg per 00 every 6 Medical tablet (six) Branch hours as needed for Pain. HYDROcodone 2022- No [id number] 1{tbl} Take 1 [facility] -acetaminop 1-07 04-27 tablet by it y of hen 7.5-325 00:00: 00:[place] per 00 :00 every 6 Medical tablet (six) Branch hours as needed for Pain. HYDROcodone 2022- No [id number] 1{tbl} Take 1 [facility] -acetaminop 1-07 04-27 tablet by it y of hen 7.5-325 00:00: 00:[place] per 00 :00 every 6 Medical tablet (six) Branch hours as needed for Pain. methylPREDN 2020- No [id number] 84mg Take 21 [facility] ISolone 1-07 10-04 tablets by ity o f (MEDROL, 00:00: 00:00 mouth [place] JORGE,) 4 mg 00 :00 SEE-INSTRU Med ical tablets CTIONS. Branch follow package directions aspirin 2017-10 Yes 81mg QD Take 81 mg Meth vani (ECOTRIN) 2-[address] 81 MG 12:54: daily. [facility] enteric 48 l coated tablet ibuprofen 2017-10 Yes 600mg Q6H Take 600 Met hodi (ADVIL,MOTR 2-[address] [place]) 600 MG 12:54: mouth [facility] a tablet 48 every 6 l (six) hours as needed for mild pain. naproxen 2017-10 Yes [id number] 500mg Take 1 U nivers 500 mg 1-06 tablet by ity of tablet 00:00: mouth 2 (two) Medical times Branch daily with meals. cyclobenzap 2017-10 Yes [id number] 10mg Take 1 [facility] rine 10 mg 1-06 tablet by ity of tablet 00:00: mouth 3 (three) Medical times Branch daily as needed for Muscle Spasms. naproxen 2017-10 Yes [id number] 500mg Take 1 U nivers 500 mg 1-06 tablet by ity of tablet 00:00: mouth 2 00 (two) Medical times Branch daily with meals. cyclobenzap 2017-10 Yes [id number] 10mg Take 1 [facility] rine 10 mg 1-06 tablet by ity of tablet 00:00: mouth 3 (three) Medical times Branch daily as needed for Muscle Spasms. naproxen 2017-10 Yes [id number] 500mg Take 1 U nivers 500 mg 1-06 tablet by ity of tablet 00:00: mouth 2 (two) Medical times Branch daily with meals. cyclobenzap 2017-10 Yes [id number] 10mg Take 1 [facility] rine 10 mg 1-06 tablet by ity of tablet 00:00: mouth 3 (three) Medical times Branch daily as needed for Muscle Spasms. naproxen 2017-10 Yes [id number] 500mg Take 1 U nivers 500 mg 1-06 tablet by ity of tablet 00:00: mouth 2 (two) Medical times Branch daily with meals. cyclobenzap 2017-10 Yes [id number] 10mg Take 1 [facility] rine 10 mg 1-06 tablet by ity of tablet 00:00: mouth 3 (three) Medical times Branch daily as needed for Muscle Spasms. naproxen 2017-10 Yes [id number] 500mg Take 1 U nivers 500 mg 1-06 tablet by ity of tablet 00:00: mouth 2 00 (two) Medical times Branch daily with meals. cyclobenzap 2017-10 Yes [id number] 10mg Take 1 [facility] rine 10 mg 1-06 tablet by ity of tablet 00:00: mouth 3 (three) Medical times Branch daily as needed for Muscle Spasms. naproxen 2017-10 Yes [id number] 500mg Take 1 U nivers 500 mg 1-06 tablet by ity of tablet 00:00: mouth 2 (two) Medical times Branch daily with meals. cyclobenzap 2017-10 Yes [id number] 10mg Take 1 [facility] rine 10 mg 1-06 tablet by ity of tablet 00:00: mouth 3 (three) Medical times Branch daily as needed for Muscle Spasms. naproxen 2017-10 Yes [id number] 500mg Take 1 U nivers 500 mg 1-06 tablet by ity of tablet 00:00: mouth 2 (two) Medical times Branch daily with meals. cyclobenzap 2017-10 Yes [id number] 10mg Take 1 [facility] rine 10 mg 1-06 tablet by ity of tablet 00:00: mouth 3 (three) Medical times Branch daily as needed for Muscle Spasms. naproxen 2017-10 Yes [id number] 500mg Take 1 U nivers 500 mg 1-06 tablet by ity of tablet 00:00: mouth 2 (two) Medical times Branch daily with meals. cyclobenzap 2017-10 Yes [id number] 10mg Take 1 [facility] rine 10 mg 1-06 tablet by ity of tablet 00:00: mouth 3 (three) Medical times Branch daily as needed for Muscle Spasms. naproxen 2017-10 Yes [id number] 500mg Take 1 U nivers 500 mg 1-06 tablet by ity of tablet 00:00: mouth 2 (two) Medical times Branch daily with meals. cyclobenzap 2017-10 Yes [id number] 10mg Take 1 [facility] rine 10 mg 1-06 tablet by ity of tablet 00:00: mouth 3 (three) Medical times Branch daily as needed for Muscle Spasms. naproxen 2017-10 Yes [id number] 500mg Take 1 U nivers 500 mg 1-06 tablet by ity of tablet 00:00: mouth 2 00 (two) Medical times Branch daily with meals. cyclobenzap 2017-10 Yes [id number] 10mg Take 1 [facility] rine 10 mg 1-06 tablet by ity of tablet 00:00: mouth 3 (three) Medical times Branch daily as needed for Muscle Spasms. naproxen 2017-10 Yes [id number] 500mg Take 1 U nivers 500 mg 1-06 tablet by ity of tablet 00:00: mouth 2 00 (two) Medical times Branch daily with meals. cyclobenzap 2017-10 Yes [id number] 10mg Take 1 [facility] rine 10 mg 1-06 tablet by ity of tablet 00:00: mouth 3 00 (three) Medical times Branch daily as needed for Muscle Spasms. naproxen 2017-10 Yes [id number] 500mg Take 1 U nivers 500 mg 1-06 tablet by ity of tablet 00:00: mouth 2 00 (two) Medical times Branch daily with meals. cyclobenzap 2017-10 Yes [id number] 10mg Take 1 [facility] rine 10 mg 1-06 tablet by ity of tablet 00:00: mouth 3 00 (three) Medical times Branch daily as needed for Muscle Spasms. naproxen 2017-10 Yes [id number] 500mg Take 1 U nivers 500 mg 1-06 tablet by ity of tablet 00:00: mouth 2 00 (two) Medical times Branch daily with meals. cyclobenzap 2017-10 Yes [id number] 10mg Take 1 [facility] rine 10 mg 1-06 tablet by ity of tablet 00:00: mouth 3 (three) Medical times Branch daily as needed for Muscle Spasms. naproxen 2017-10 Yes [id number] 500mg Take 1 U nivers 500 mg 1-06 tablet by ity of tablet 00:00: mouth 2 00 (two) Medical times Branch daily with meals. cyclobenzap 2017-10 Yes [id number] 10mg Take 1 [facility] rine 10 mg 1-06 tablet by ity of tablet 00:00: mouth 3 00 (three) Medical times Branch daily as needed for Muscle Spasms. naproxen 2017-10 Yes [id number] 500mg Take 1 U nivers 500 mg 1-06 tablet by ity of tablet 00:00: mouth 2 00 (two) Medical times Branch daily with meals. cyclobenzap 2017-10 Yes [id number] 10mg Take 1 [facility] rine 10 mg 1-06 tablet by ity of tablet 00:00: mouth 3 00 (three) Medical times Branch daily as needed for Muscle Spasms. naproxen 2017-10- No [id number] 500mg Take 1 [facility] 500 mg 10-12 tablet by ity of tablet 00:00: 00:00 mouth 2 [place] 00 :00 (two) Medical times Branch daily with meals. cyclobenzap 2017-10- No [id number] 10mg Take 1 [facility] rine 10 mg 10-12 tablet by ity of tablet 00:00: 00:00 mouth 3 [place] 00 :00 (three) Medical times Branch daily as needed for Muscle Spasms. naproxen 2017-10- No [id number] 500mg Take 1 [facility] 500 mg 10-12 tablet by ity of tablet 00:00: 00:00 mouth 2 [place] 00 :00 (two) Medical times Branch daily with meals. cyclobenzap 2017-10- No [id number] 10mg Take 1 [facility] rine 10 mg 10-12 tablet by ity of tablet 00:00: 00:00 mouth 3 [place] 00 :00 (three) Medical times Branch daily as needed for Muscle Spasms. tamsulosin Yes .4mg QD Take 1 Metho di (FLOMAX) 8-[address] 0.4 mg 00:00: (0.4 mg [facility]osp[facility] capsule 00 total) by l mouth daily. mupirocin 2 Yes [id number] Apply to Univers % ointment 4-18 area(s) 3 ity of 00:00: (three) [place] 00 times Medical daily. Branch mupirocin 2 0 Yes [id number] Apply to Univers % ointment 4-18 area(s) 3 ity of 00:00: (three) [place] 00 times Medical daily. Branch mupirocin 2 2017-0 Yes [id number] Apply to Univers % ointment 4-18 area(s) 3 ity of 00:00: (three) [place] 00 times Medical daily. Branch mupirocin 2 2017-0 Yes [id number] Apply to Univers % ointment 4-18 area(s) 3 ity of 00:00: (three) [place] 00 times Medical daily. Branch mupirocin 2 2017-0 Yes [id number] Apply to Univers % ointment 4-18 area(s) 3 ity of 00:00: (three) [place] 00 times Medical daily. Branch mupirocin 2 2018-0 Yes [id number] Apply to Univers % ointment 4-18 area(s) 3 ity of 00:00: (three) [place] 00 times Medical daily. Branch mupirocin 2 2018-0 Yes [id number] Apply to Univers % ointment 4-18 area(s) 3 ity of 00:00: (three) [place] 00 times Medical daily. Branch mupirocin 2 2018-0 Yes [id number] Apply to Univers % ointment 4-18 area(s) 3 ity of 00:00: (three) [place] 00 times Medical daily. Branch mupirocin 2 2018-0 Yes [id number] Apply to Univers % ointment 4-18 area(s) 3 ity of 00:00: (three) [place] 00 times Medical daily. Branch mupirocin 2 2018-0 Yes [id number] Apply to Univers % ointment 4-18 area(s) 3 ity of 00:00: (three) [place] 00 times Medical daily. Branch mupirocin 2 2018-0 Yes [id number] Apply to Univers % ointment 4-18 area(s) 3 ity of 00:00: (three) [place] 00 times Medical daily. Branch mupirocin 2 2018-0 Yes [id number] Apply to Univers % ointment 4-18 area(s) 3 ity of 00:00: (three) [place] 00 times Medical daily. Branch mupirocin 2 2018-0 Yes [id number] Apply to Univers % ointment 4-18 area(s) 3 ity of 00:00: (three) [place] 00 times Medical daily. Branch mupirocin 2 2018-0 Yes [id number] Apply to Univers % ointment 4-18 area(s) 3 ity of 00:00: (three) [place] 00 times Medical daily. Branch mupirocin 2 2018-0 Yes [id number] Apply to Univers % ointment 4-18 area(s) 3 ity of 00:00: (three) [place] 00 times Medical daily. Branch mupirocin 2 2018-0 Yes [id number] Apply to Univers % ointment 4-18 area(s) 3 ity of 00:00: (three) [place] 00 times Medical daily. Branch mupirocin 2 2018-0 Yes [id number] Apply to Univers % ointment 4-18 area(s) 3 ity of 00:00: (three) [place] 00 times Medical daily. Branch mupirocin 2 Yes [id number] Apply to Univers % ointment 4-18 area(s) 3 ity of 00:00: (three) [place] 00 times Medical daily. Branch mupirocin 2 Yes [id number] Apply to Univers % ointment 4-18 area(s) 3 ity of 00:00: (three) [place] 00 times Medical daily. Branch atorvastati 2020- No [id number] 10mg Take 1 Univers n 10 mg 4-18 10-04 tablet by ity of tablet 00:00: 00:00 mouth at [place] 00 :00 bedtime. Medical Must be Branch seen for refills. Vital Signs Vital Name Observation Time Observation Value Comments Source Systolic blood 2023-01-31 12:11:00 175 mm[Hg] [facility] [place] Diastolic blood 2023-01-31 12:11:00 105 mm[Hg] [facility] Heart rate 2023-01-31 12:11:00 70 /min [facility] Oxygen saturation 2023-01-31 12:11:00 99 /min [facility] Arterial blood [facility] anch by Pulse oximetry Body height 2023-01-31 12:06:00 185.4 cm [facility] Body weight 2023-01-31 12:06:00 94.62 kg [facility] BMI 2023-01-31 12:06:00 27.52 kg/m2 [facility] Systolic blood 2021-07-10 13:17:00 138 mm[Hg] [facility] [place] Diastolic blood 2021-07-10 13:17:00 85 mm[Hg] [facility] Body weight 2021-07-10 13:17:00 94.802 kg [facility] BMI 2021-07-10 13:17:00 27.57 kg/m2 [facility] Procedures This patient has no known procedures. Plan of Care Planned Activity Planned Date Details Comments Source Future Scheduled 2023-01-11 COVID-19 VACCINE (#1) [facility] 18:19:17 [code = COVID-19 VACCINE (#1)] Future Scheduled 2023-01-11 COLONOSCOPY SCREENING [facility] Test 18:19:17 [code = COLONOSCOPY SCREENING] Future Scheduled 2023-01-11 SHINGLES VACCINES (1 [facility] Test 18:19:17 of 2) [code = SHINGLES VACCINES (1 of 2)] Future Scheduled 2023-01-11 INFLUENZA VACCINE [facility] Test 18:19:17 [code = INFLUENZA VACCINE] Encounters Start End Encounter Admission Attending Care Care Encounter Source Date/Time Date/Time Type Type Clinicians Facility Department ID 2023-08-05 2023-08-05 Outpatient Judith COLLAZO [facility] [id number] Univers 07:15:00 07:15:00 PRINCE linda [facility] 2023-02-28 2023-02-28 [facility] 1.2.840.114 [id number] Univers 00:00:00 00:00:00 [facility] 350.1.13.10 it y of [place] 4.2.7.2.686 Bola as GULSHAN?BLEA [id number] [address] OFFICE [facility] 2023-02-27 2023-02-27 [facility]ira [facility] 1.2.840.114 [id number] Univers 00:00:00 00:00:00 [facility] 350.1.13.10 it y of [place] 4.2.7.2.686 Bola as GULSHAN?BLEA [phone] [address] OFFICE [facility] 2023-01-31 2023-01-31 Office [facility] 1.2.840.114 [id number] Univers 07:15:00 07:30:00 Visit [facility] 350.1.13.10 it y of [place] 4.2.7.2.686 Bola as GULSHAN?BLEA [phone] [address] OFFICE [facility] 2023-01-31 2023-01-31 Outpatient Judith COLLAZO [facility] [id number] Univers 07:15:00 07:15:00 PRINCE linda [facility] 2023-01-23 2023-01-23 [facility] 1.2.840.114 [id number] Univers 00:00:00 00:00:00 [facility] 350.1.13.10 it y of [place] 4.2.7.2.686 Bola as GULSHAN?BLEA [phone] [address] OFFICE [facility] 2023-01-21 2023-01-21 [facility] 1.2.840.114 [id number] Univers 00:00:00 00:00:00 [facility] 350.1.13.10 it y of [place] 4.2.7.2.686 Bola as GULSHAN?BLEA [id number] [address] 2023-01-19 2023-01-19 [facility] 1.2.840.114 [id number] Univers 00:00:00 00:00:00 [facility] 350.1.13.10 it y of [place] 4.2.7.2.686 Bola as GULSHAN?BLEA [id number] [address] 2022-12-12 2022-12-12 [facility] 1.2.840.114 [id number] Univers 00:00:00 00:00:00 [facility] 350.1.13.10 it y of [place] 4.2.7.2.686 Bola as GULSHAN?BLEA [id number] [address] 2022-12-12 2022-12-12 [facility] 1.2.840.114 [id number] Univers 00:00:00 00:00:00 [facility] 350.1.13.10 it y of [place] 4.2.7.2.686 Bola as GULSHAN?BLEA [phone] [address] 2022-10-21 2022-10-21 [facility] 1.2.840.114 [id number] Univers 00:00:00 00:00:00 [facility] 350.1.13.10 it y of [place] 4.2.7.2.686 Bola as GULSHAN?BLEA [id number] Ar hailey POLLACK [address] [place] [address] OFFICE [facility] 2022-07-23 2022-07-23 [facility] 1.2.840.114 [id number] Univers 00:00:00 00:00:00 [facility] 350.1.13.10 it y of [place] 4.2.7.2.686 Bola as GULSHAN?BLEA [id number] Ar hailey POLLACK [address] [place] [address] OFFICE [facility] 2022-04-24 2022-04-24 [facility] 1.2.840.114 [id number] Univers 00:00:00 00:00:00 [facility] 350.1.13.10 it y of [place] 4.2.7.2.686 Bola as GULSHAN?BLEA [phone] Ar hailey POLLACK [address] [place] [address] OFFICE [facility] 2022-04-12 2022-04-12 [place] [facility] 1.2.165.169 [id number] Univers 00:00:00 00:00:00 [facility] 350.1.13.10 it y of [place] 4.2.7.2.686 Bola as GULSHAN?BLEA [phone] Ar hailey POLLACK [address] [place] [address] OFFICE [facility] 2022-02-02 2022-02-02 [facility] 1.2.840.114 [id number] Univers 00:00:00 00:00:00 [facility] 350.1.13.10 it y of [place] 4.2.7.2.686 Bola as GULSHAN?BLEA [phone] Ar hailey POLLACK [address] [place] [address] OFFICE [facility] 2022-01-31 2022-01-31 [facility] 1.2.840.114 [id number] Univers 00:00:00 00:00:00 [facility] 350.1.13.10 it y of [place] 4.2.7.2.686 Bola as GULSHAN?BLEA [phone] Ar hailey POLLACK [address] [place] [address] OFFICE [facility] 2022-01-29 2022-01-29 [facility] 1.2.840.114 [id number] Univers 00:00:00 00:00:00 [facility] 350.1.13.10 it y of [place] 4.2.7.2.686 Bola as GULSHAN?BLEA [id number] [address] OFFICE [facility] 2022-01-24 2022-01-24 [facility] 1.2.840.114 [id number] Univers 00:00:00 00:00:00 [facility] 350.1.13.10 it y of [place] 4.2.7.2.686 Bola as GULSHAN?BLEA [id number] [address] OFFICE [facility] 2021-10-13 2021-10-13 [facility] 1.2.840.114 [id number] Univers 00:00:00 00:00:00 [facility] 350.1.13.10 it y of [place] 4.2.7.2.686 Bola as GULSHAN?BLEA [id number] [address] 2021-07-10 2021-07-10 [facility] [id number] Univers 08:30:00 08:30:00 PRINCE [facility] 2021-07-10 2021-07-10 [facility] 1.2.840.114 [id number] Univers 08:14:16 08:29:16 Visit [facility] 350.1.13.10 [address] [place] 4.2.7.2.686 Bola as Gulshan?Blea [phone] [address] Office [facility] 2021-07-05 2021-07-05 Outpatient Judith [facility] [id number] Univers 14:45:00 14:45:00 PRINCE [facility] 2021-06-30 2021-06-30 [facility] 1.2.840.114 [id number] Univers 00:00:00 00:00:00 [facility] 350.1.13.[address] 4.2.7.2.686 Bola as Gulshan?Blea [phone] [address] Office [facility] 2021 2021 [facility]idi [facility]UN[facility] 1.2.840.114 [id number] Univers 00:00:00 00:00:00 [facility] 350.1.13.[address] 4.2.7.2.686 Bola as Professio [phone] [place] [address] Branch Office [facility] 2021 2021 Chidi [facility] 1.2.840.114 [id number] Univers 00:00:00 00:00:00 [facility] 350.1.13.[address] 4.2.7.2.686 Bola as Professio [phone] Ar hailey lafleur [address] [place] [address] Office [facility] 2021-06-18 2021-06-18 [facility] 1.2.840.114 [id number] Univers 00:00:00 00:00:00 [facility] 350.1.13.[address] 4.2.7.2.686 Bola as Professio [phone] [facility] miquel Freeman [facility] Branch Office [facility] 2021-06-15 2021-06-15 [facility] 1.2.840.114 [id number] Univers 00:00:00 00:00:00 [facility] 350.1.13.10 [address] [place] 4.2.7.2.686 Bola as Gulshan?Blea [phone] Ar hailey [address] Office Building 2021-05-24 2021-05-24 [facility] 1.2.840.114 [id number] Univers 00:00:00 00:00:00 [facility] 350.1.13.10 [address] [place] 4.2.7.2.686 Bola as Professio [phone] Ar dicny nal [address] [place] [address] Office [facility] 2021-05-24 2021-05-24 [facility] 1.2.840.114 [id number] Univers 00:00:00 00:00:00 [facility] 350.1.13.10 [address] 4.2.7.2.686 Bola as Professio [phone] [facility] Branch Office [facility] 2021-04-25 2021-04-25 Chidi Collazo, [facility] 1.2.840.114 [id number] Univers 00:00:00 00:00:00 [facility] 350.1.13.10 [address] [place] 4.2.7.2.686 Bola as Professio [phone] [facility] nal [address] [place] [address] One 2021-04-24 2021-04-24 Chidi Collazo, [facility] 1.2.840.114 [id number] Univers 00:00:00 00:00:00 [facility] 350.1.13.10 [address] [place] 4.2.7.2.686 Bola as Professio [phone] [facility] nal [address] [place] [address] One 2021-04-24 2021-04-24 Chidi Collazo, [facility] 1.2.840.114 [id number] Univers 00:00:00 00:00:00 [facility] 350.1.13.10 it [address] [place] 4.2.7.2.686 Bola as Professio [phone] [facility] [address] [place] [address] One 2021-03-15 2021-03-15 Chidi Collazo, [facility] 1.2.840.114 [id number] Univers 00:00:00 00:00:00 [facility] 350.1.13.10 [address] [place] 4.2.7.2.686 Bola as Professio [phone] [facility] nal [address] [place] [address] One 2021-02-13 2021-02-13 Chidi Collazo, [facility] 1.2.840.114 [id number] Univers 00:00:00 00:00:00 [facility] 350.1.13.10 [address] [place] 4.2.7.2.686 Bola as Professio [phone] Ar dical nal [address] [place] [address] Office [facility] One 2021-02-13 2021-02-13 Chidi Collazo, [facility] 1.2.840.114 [id number] Univers 00:00:00 00:00:00 [facility] 350.1.13.10 it y [address] [place] 4.2.7.2.686 Bola as Professio [phone] [facility]al [address] [place] [address] Office [facility] One 2021-01-16 2021-01-16 Chdii Collazo [facility] 1.2.840.114 [id number] Univers 00:00:00 00:00:00 [facility] 350.1.13.10 it [address] [place] 4.2.7.2.686 Bola as Professio [phone] [facility] nal [address] [place] [address] One 2021-01-14 2021-01-14 [facility] 1.2.840.114 [id number] Univers 00:00:00 00:00:00 [facility] 350.1.13.10 it y [address] [place] 4.2.7.2.686 Bola as Professio [phone] [facility] nal [address] [place] [address] One 2020-11-07 2020-11-07 [facility] 1.2.840.114 [id number] Univers 00:00:00 00:00:00 [facility] 350.1.13.10 it [address] [place] 4.2.7.2.686 Bola as Professio [phone] [facility] nal [address] [place] [address] One 2020-10-21 2020-10-21 Chidi Collazo [facility] 1.2.840.114 [id number] Univers 00:00:00 00:00:00 [facility] 350.1.13.10 it [address] [place] 4.2.7.2.686 Bola as Professio [phone] [facility] nal [address] [place] [address] Office [facility] One 2020-10-08 2020-10-08 [facility] 1.2.840.114 [id number] Univers 00:00:00 00:00:00 [facility] 350.1.13.10 it y [address] [place] 4.2.7.2.686 Bola as Professio [phone] [facility] nal [address] [place] [address] Office [facility] One 2020-08-09 2020-08-09 [facility] 1.2.840.114 [id number] Univers 00:00:00 00:00:00 [facility] 350.1.13.10 it y of [place] 4.2.7.2.686 Bola as Professio [phone] Ar dical nal [address] [facility] 2020-06-10 2020-06-10 Refmoira [facility]UN[facility] 1.2.840.114 [id number] Univers 00:00:00 00:00:00 [facility] [id number] it y of [place] [id number] [place] as Professio [phone] Ar dical nal [address] [facility] 2020-05-14 2020-05-14 [facility] [id number] Univers 00:00:00 00:00:00 Prince Barriga [id number] it y of [place] [id number] [place] Professio [phone] Ar dical nal [address] [facility] 2020-04-11 2020-04-11 Membership Secretary 2, Adc Lab [facility] [id number] [id number] Univers 14:21:04 14:36:04 Visit Prince Collazo [id number] it[id number] [phone] Ar dical nal 353 [facility] 2020-04-11 2020-04-11 [facility] [id number] Univers 14:30:00 14:30:00 PRINCE itlinda [facility] 2020-04-11 2020-04-11 Office [facility] 1.2.840.114 [id number] Univers 13:55:40 14:10:40 Visit [place] [id number] i ty [id number] [phone] Ar dical nal 044 [facility] 2020-04-09 2020-04-09 [facility] 1.2.840.114 [id number] Univers 00:00:00 00:00:00 [facility] [id number] it y of [place] [id number] [place] Profess[place] [phone] Ar [address] 2020-04-07 2020-04-07 Chidi Branch [facility] [id number] Univers 00:00:00 00:00:00 [facility] [id number] it y of [place] [id number] [place] Profess[place] [phone] [address] 2020-03-30 2020-03-30 Outpatient R VALE [facility] [id number] Univers 14:00:00 14:00:00 PRINCE cabello [facility] 2020-03-29 2020-03-29 Out[facility] [id number] Univers 09:30:00 09:30:00 PRINCE cabello [facility] 2020-01-25 2020-01-25 Telephone [facility] [id number] Univers 00:00:00 00:00:00 [facility] [place] [id number] i ty [id number] [phone] [address] 2020-01-22 2020-01-22 [facility] 1.2.840.114 [id number] Univers 00:00:00 00:00:00 [facility] [id number] it y of [place] [id number] [place] Profess[place] [phone] [address] 2020-01-20 2020-01-20 Telephone [facility] [id number] Univers 00:00:00 00:00:00 [facility] [id number] i ty [id number] [phone] [address] 2020-01-14 2020-01-14 Orders Doctor BARKER 1.2.840.114 [id number] Univers 00:00:00 00:00:00 Only Unassigned, LORENZA [id number] ity of [place] [facility] [id number] Bola as [phone] [address] 2019-11-30 2019-11-30 Office [facility] 1.2.840.114 [id number] Univers 13:34:00 14:04:07 Visit [facility] [id number] it [place] [id number] [place] Professio [phone] [address] Office [facility] 2019-11-30 2019-11-30 Outpatient R VALE [facility] [id number] Univers 14:00:00 14:00:00 PRINCE ity of [facility] 2019-11-11 2019-11-11 Telephone [facility] [id number] Univers 00:00:00 00:00:00 [facility] [id number] [place] [id number] [place] Professio [phone] [address] Office [facility] 2019-10-28 2019-10-28 Telephone [facility] [id number] Univers 00:00:00 00:00:00 [facility] [id number] it [place] [id number] [place] Professio [phone] [address] Office [facility] 2019-05-28 2019-05-28 Telephone [facility] [id number] Univers 00:00:00 00:00:00 [facility] [id number] [place] [id number] [place] Professio [phone] [address] Office [facility] 2019-05-27 2019-05-27 Orders Doctor MJ 1.2.840.114 [id number] Univers 00:00:00 00:00:00 Only Unassigned, LORENZA [id number] ity of [place] [facility] [id number] Bola as [phone] [address] 2019-05-26 2019-05-26 Letter [facility] 1.2.840.114 [id number] Univers 00:00:00 00:00:00 (Out) [facility] [id number] [place] [id number] [place] Professio [phone] Ar hailey lafleur [address] [place] [address] Office [facility] 2019-05-21 2019-05-21 Jose D Collazo [facility] [id number] Univers 00:00:00 00:00:00 [facility] [id number] [place] [id number] [place] as Professio [phone] Ar brina[address] Office [facility] 2019-05-12 2019-05-12 Jose D [facility] [id number] Univers 00:00:00 00:00:00 [facility] [id number] [place] [id number] [place] Professio [phone] Ar hailey lafleur [address] [place] [address] One 2019-05-12 2019-05-12 Jose [facility] [id number] Univers 00:00:00 00:00:00 [facility] [id number] it [place] [id number] [place] Professio [phone] Ar brinany miquel [address] [place] [address] Office [facility] 2019-05-11 2019-05-11 Chidi [facility] 1.2.840.114 [id number] Univers 00:00:00 00:00:00 [facility] [id number] it [place] [id number] [place] Professio [phone] [address] Office [facility] 2019-05-03 2019-05-03 Chidi [facility] 1.2.840.114 [id number] Univers 00:00:00 00:00:00 [facility] [id number] [place] [id number] [place] Professio [phone] [address] One Results This patient has no known results.
[2023-03-10] MEDS ORDERED: NA CHLORIDE 0.9% 1,000 ML ONE ×2 (08:14→09:12)
[2023-03-10 08:29] LABS: Absolute Lymphocytes (CBC) 0.5 K/uL (0.7-4.9); Hematocrit 43.2 % (39.6-49.0); Lymphocytes % 2.3 % (15.3-44.8); MCV 88.2 fL (80-100)
[2023-03-10] MEDS ORDERED: VANCOMYCIN 1 GM/VIAL ONE (08:31)
[2023-03-10] MEDS ORDERED: NA CHLORIDE 0.9% 500 ML ONE (08:31)
[2023-03-10] MEDS ORDERED: CEFEPIME 1 GM/VIAL ONE (08:32)
[2023-03-10] MEDS ORDERED: NA CHLORIDE 0.9% 100 ML ONE (08:32)
[2023-03-10 08:35] LABS: Protime INR 1.15
[2023-03-10 08:55] LABS: Albumin 2.7 g/dL (3.4-5.0); Bilirubin Total 1.2 mg/dL (0.2-1.0); Potassium 4.3 mEq/L (3.5-5.1)
[2023-03-10 08:58] LABS: Blood Morphology Comment NOT SEEN (NOT SEEN); Platelet Estimate ADEQ; White Blood Cell Scan OK (OK)
--- NOTE | 2023-03-10 09:59 | RAD REPORT ---
EXAM DESCRIPTION: RAD - Foot Right 3 View - 03/10/2023 9:00 am CLINICAL HISTORY: eval osteo COMPARISON: No comparisons TECHNIQUE: Right foot, 3 views. FINDINGS: No fracture or periosteal reaction. Hallux valgus deformity. Extensive soft tissue swelling about the forefoot, with gas centered on the second and third metatars al heads, extending to the level of the ankle joint anteriorly. There is disarticulation of the secon d metatarsophalangeal joint. Some rarefaction noted at the base of the second digit proximal phalanx. IMPRESSION: Extensive soft tissue gas and swelling as above. Disarticulation of the second metatarsophalangeal joint. Some rarefaction noted at the base of the se cond digit proximal phalanx raising concern for osteomyelitis, although radiographic sensitivity is l imited compared to MRI.
[2023-03-10] MEDS ORDERED: ONDANSETRON 4 MG/2 ML VIAL IV PRN (10:33)
[2023-03-10] MEDS ORDERED: HYDROCODONE/APAP 5/325 MG TAB PO PRN (10:33)
[2023-03-10] MEDS ORDERED: HYDROMORPHONE HCL 2 MG/ML inj IV PRN (10:33)
[2023-03-10] MEDS ORDERED: INSULIN GLARGINE 100 UNIT/ML SQ SCH (10:41)
--- NOTE | 2023-03-10 10:43 | P.HP ---
Certification for Inpatient Patient admitted to: Inpatient With expected LOS: >2 Midnights Patient will require the following post-hospital care: None Practitioner: I am a practitioner with admitting privileges, knowledge of patient current condition, hospital course, and medical plan of care. Services: Services provided to patient in accordance with Admission requirements found in Title 42 Section 412.3 of the Code of Federal Regulations Patient History Date of Service: 03/10/23 Reason for admission: Right foot gangrene History of Present Illness: It is 57 years of age with a history of diabetes and gout he has been having problems with his right foot for the past 2 weeks went to see trial management associate and was recently prescribed antibiotic condition continued to deteriorate started developing more swelling pain redness return of his skin in the right foot admitted here with right foot gangrene by x-ray it does have air in the soft tissues planing of pain no prior history of peripheral vascular disease Allergies No Known Allergies Allergy (Verified 04/12/22 16:14) - Past Medical/Surgical History Diabetic: Yes -: dm -: htn -: cabg - Social History Smoking Status: Unknown if ever smoked Alcohol use: No Review of Systems 10-point ROS is otherwise unremarkable Physical Examination - Physical Exam General: Alert, Acute distress Respiratory: Clear to auscultation bilaterally Cardiovascular: No edema, Regular rate/rhythm, Normal S1 S2 - Studies Laboratory Data (last 24 hrs) 03/10/23 08:19: PT 12.6 H, INR 1.15, APTT 31.1 03/10/23 08:19: Sodium 126 L, Potassium 4.3, BUN 29 H, Creatinine 2.22 H, Glucose 569 H*, Total Bilirubin 1.2 H, AST 29, ALT 36, Alkaline Phosphatase 227 H 03/10/23 08:19: WBC 20.90 H, Hgb 14.2, Hct 43.2, Plt Count 223 Assessment and Plan - Problems (Diagnosis) (1) Gangrene of right foot Current Visit: Yes Status: Acute Plan: Patient is 57 years of age admitted with gangrene of the right foot been present for the past 2 weeks history of coronary artery disease s/p CABG history of diabetes was recently treated with doxycycline and cephalexin from a podiatry so foot has gotten worse Labs reviewed patient is renal function is worse White count elevated sugars are very high and was given some cefepime and vancomycin patient left A and since been discharged and wants to go to [facility] - Advance Directives Does patient have a Living Will: No Does patient have a Durable POA for Healthcare: No
--- NOTE | 2023-03-10 10:53 | ER ---
Nurse's Notes [facility] Name: Samuel Felix Age: 57 yrs Sex: Male : 1965 Arrival Date: 03/10/2023 Time: 07:47 Bed 19 Private MD: Diagnosis: Gangrene, not elsewhere classified;Cellulitis of unspecified toe Presentation: 03/10 07:53 Chief complaint: Patient states: Has been seeing several doctors x 2 weeks for a wound vg1 on Right toes, 2nd digit appears to have a wound and 3rd digit appears to be purple. Pt states is DM. Intermittent Fever. BGL in triage 477. Coronavirus screen: Vaccine status: Patient reports receiving the 2nd dose of the covid vaccine. Client denies travel out of the [place] in the last 14 days. Ebola Screen: Patient negative for fever greater than or equal to 101.5 degrees Fahrenheit, and additional compatible Ebola Virus Disease symptoms Patient denies exposure to infectious person. Patient denies travel to an Ebola-affected area in the 21 days before illness onset. Initial Sepsis Screen: Does the patient meet any 2 criteria? HR > 90 bpm. Does the patient have a suspected source of infection? No. Patient's initial sepsis screen is negative. Risk Assessment: Do you want to hurt yourself or someone else? Patient reports no desire to harm self or others. Onset of symptoms was February 24, 2023. 07:53 Method Of Arrival: Ambulatory 1 07:53 Acuity: OUMOU 3 vg1 Triage Assessment: 07:56 General: Appears uncomfortable, Behavior is cooperative. Pain: Complains of pain in vg1 right foot Pain currently is 10 out of 10 on a pain scale. Neuro: Level of Consciousness is awake, alert, obeys commands, Oriented to person, place, time, situation. Derm: Wound noted right second toe and right third toe. Musculoskeletal: Reports pain in right foot. Historical: - Allergies: 07:56 No Known Allergies; vg1 - Home Meds: 07:56 Metoprolol Tartrate Oral [Active]; Januvia 30mg Oral 1 tab once daily [Active]; vg1 - PMHx: 07:56 Diabetes - NIDDM; Triple Bypass; Neuropathy; vg1 - Immunization history:: Client reports receiving the 2nd dose of the Covid vaccine. - Social history:: Smoking status: Patient denies any tobacco usage or history of. Screenin:15 [facility] ED Fall Risk Assessment (Adult) History of falling in the last 3 months, jl7 including since admission No falls in past 3 months (0 pts). Abuse screen: Denies threats or abuse. Denies injuries from another. Nutritional screening: No deficits noted. Tuberculosis screening: No symptoms or risk factors identified. Assessment: 08:15 General: Appears in no apparent distress. uncomfortable, Behavior is calm, cooperative, jl7 appropriate for age, Reports chills for. Pain: Complains of pain in right foot Pain currently is 10 out of 10 on a pain scale. Neuro: Level of Consciousness is awake, alert, obeys commands, Oriented to person, place, time, situation. Cardiovascular: Patient's skin is warm and dry. Respiratory: Airway is patent Respiratory effort is even, unlabored, Respiratory pattern is regular, symmetrical. Derm: Skin is pink, warm \\T\\ dry. 08:30 General: Appears in no apparent distress. uncomfortable, Behavior is calm, cooperative, kc6 appropriate for age, Reports chills for. Pain: Complains of pain in right foot. Neuro: Wiseman Agitation-Sedation Scale (RASS): 0 - Alert and Calm Level of Consciousness is awake, alert, obeys commands, Oriented to person, place, time, situation, Appropriate for age. Cardiovascular: Capillary refill < 3 seconds. Respiratory: Airway is patent Trachea midline Respiratory effort is even, unlabored, Respiratory pattern is regular, symmetrical. GI: No signs and/or symptoms were reported involving the gastrointestinal system. : No signs and/or symptoms were reported regarding the genitourinary system. EENT: No signs and/or symptoms were reported regarding the EENT system. Derm: Skin is pink, warm \\T\\ dry. Wound noted right foot. Musculoskeletal: No signs and/or symptoms reported regarding the musculoskeletal system. Circulation, motion, and sensation intact. Capillary refill < 3 seconds, Range of motion: intact in all extremities. 09:29 Reassessment: Patient appears in no apparent distress at this time. No changes from kc6 previously documented assessment. Patient and/or family updated on plan of care and expected duration. Pain level reassessed. Patient is alert, oriented x 3, equal unlabored respirations, skin warm/dry/pink. 10:39 Reassessment: Patient appears in no apparent distress at this time. No changes from kc6 previously documented assessment. Patient and/or family updated on plan of care and expected duration. Pain level reassessed. Patient is alert, oriented x 3, equal unlabored respirations, skin warm/dry/pink. 10:52 Reassessment: d/c pending vancomycin completion. kc6 Vital Signs: 07:53 BP 132 / 88; Pulse 98; Resp 18; Temp 98.4(O); Pulse Ox 97% on R/A; Weight 95.25 kg; vg1 Height 6 ft. 1 in. ; Pain 10/10; 08:42 BP 149 / 81; Pulse 90; Resp 18 S; Pulse Ox 96% on R/A; kc6 09:29 BP 125 / 57; Pulse 90; Resp 17 S; Pulse Ox 97% on R/A; kc6 10:39 BP 127 / 65; Pulse 101; Resp 28 S; Pulse Ox 97% on R/A; kc6 07:53 Body Mass Index 27.71 (95.25 kg, 185.42 cm) vg1 07:53 Pain Scale: Adult vg1 ED Course: 07:49 Patient arrived in ED. rg4 07:50 Terrance Salazar MD is Attending Physician. bs3 07:56 Triage completed. vg1 07:56 Arm band placed on. vg1 08:04 Sophie Chi, JAIRO is Primary Nurse. jl7 08:15 Patient has correct armband on for positive identification. Placed in gown. Bed in low jl7 position. Call light in reach. Side rails up X 1. Client placed on continuous cardiac and pulse oximetry monitoring. NIBP monitoring applied. Warm blanket given. 08:15 Inserted saline lock: 20 gauge in right antecubital area, using aseptic technique. jl7 Blood collected. 08:20 Initial lab(s) drawn, by me, sent to lab. First set of blood cultures drawn by me. jl7 08:30 Second set of blood cultures drawn by me. jl7 09:02 Foot Right 3 View XRAY In Process Unspecified. EDMS 10:22 initiated a transfer with Romel from the [facility] at the request of eb the patient. 10:24 Romel from the [facility] denied the patient in transfer due to the eb facility being at capacity. 11:23 No provider procedures requiring assistance completed. IV discontinued, intact, kc6 bleeding controlled, No redness/swelling at site. Pressure dressing applied. Administered Medications: 08:33 Drug: Cefepime IVPB 1 grams Route: IVPB; Rate: 200 ml/hr; Infused Over: 30 mins; Site: kc6 right antecubital; 09:19 Follow up: Response: No adverse reaction; IV Status: Completed infusion; IV Intake: kc6 100ml 08:34 Drug: NS 0.9% IV 1000 ml Route: IV; Rate: 1 bolus; Site: right antecubital; jl7 10:46 Follow up: IV Status: Completed infusion; IV Intake: 1000ml kc6 09:12 Drug: vancoMYCIN IVPB 20 mg/kg Route: IVPB; Site: right antecubital; kc6 09:12 Drug: NS 0.9% IV 1000 ml Route: IV; Rate: 1000 ml; Site: right antecubital; kc6 10:46 Follow up: IV Status: Completed infusion; IV Intake: 1000ml kc6 11:04 Drug: Clindamycin PO 450 mg Route: PO; kc6 11:24 Follow up: Response: No adverse reaction kc6 Medication: 08:15 VIS not applicable for this client. jl7 Intake: 09:19 IV: 100ml; Total: 100ml. kc6 10:46 IV: 1000ml; Total: 1100ml. kc6 10:46 IV: 1000ml; Total: 2100ml. kc6 Outcome: 10:52 Discharge ordered by . bs3 11:23 Discharged to home via wheelchair, with significant other. kc6 11:23 Condition: stable 11:23 Discharge instructions given to patient, Instructed on discharge instructions, follow up and referral plans. Demonstrated understanding of instructions, follow-up care. 11:24 Patient left the ED. kc6 Addendum: 03/11/2023 14:52 Addendum: Culture Results: Positive blood culture. Anaerobic bottle gram positive cocci a a5 in clusters. Contacted pt, spoke to pt's over the phone and pt's reports pt is currently at [facility], pt's states "he just had surgery", ok per pt's to fax blood culture results to primary nurse. Spoke to Yuridia nurse at [facility] and faxed blood culture results to [phone] as fax # provided by Yur[facility]. Signatures: Dispatcher [employer] EDKaty Martines, RN RN aa5 Leta Gudino rg4 Sophie Chi RN RN jl7 Dominique Gustafson Victoria RN RN vg1 Denisse Blackman RN RN kc6 Terrance Salazar MD MD bs3 Corrections: (The following items were deleted from the chart) 03/10 08:03 07:53 Chief complaint: Patient states: Has been seeing several doctors x 2 weeks for a vg1 wound on Right toes, 2nd digit appears to have a wound and 3rd digit appears to be purple. Pt states is DM. Intermittent Fever. vg1 10:28 10:22 initiated a transfer with Romel from the [facility]
--- NOTE | 2023-03-10 10:53 | EDPHYS ---
Physician Documentation [facility] Name: Samuel Felix Age: 57 yrs Sex: Male : 1965 Arrival Date: 03/10/2023 Time: 07:47 Bed 19 Private MD: ED Physician Terrance Salazar HPI: 03/10 08:01 This 57 yrs old Male presents to ER via Ambulatory with complaints of Foot bs3 Problem. 08:01 57-year-old male history of CAD status post bypass [id number] diabetes bs3 presents with right foot pain that has been progressive over the last several weeks he saw 1 doctor who wanted to do possible bunion surgery and then went to an urgent care yesterday who started him on antibiotics but his third toe started turning purple today and therefore he came in. He reports intermittent fevers. Historical: - Allergies: 07:56 No Known Allergies; vg1 - Home Meds: 07:56 Metoprolol Tartrate Oral [Active]; Januvia 30mg Oral 1 tab once daily [Active]; vg1 - PMHx: 07:56 Diabetes - NIDDM; Triple Bypass; Neuropathy; vg1 - Immunization history:: Client reports receiving the 2nd dose of the Covid vaccine. - Social history:: Smoking status: Patient denies any tobacco usage or history of. ROS: 08:01 Constitutional: Negative for fever, chills Neck: Negative for injury, pain, and bs3 swelling. 08:01 All other systems are negative. Exam: 08:01 Constitutional: This is a well developed, well nourished patient who is awake, alert, bs3 and in no acute distress. Head/Face: Normocephalic, atraumatic. Eyes: Pupils equal round and reactive to light, extra-ocular motions intact. Lids and lashes normal. ENT: mmm, no posterior phyarngeal erythema Neck: Trachea midline, no thyromegaly, no neck stiffness Chest/axilla: Normal chest wall appearance and motion. Nontender with no deformity. No lesions are appreciated. Cardiovascular: Regular rate and rhythm with a normal S1 and S2. symmetric pulses in upper extremities Respiratory: Lungs have equal breath sounds bilaterally, clear to auscultation, no respiratory distress MS/ Extremity: Foul-smelling right foot he has discoloration of his right third toe there are several wounds on his first toe and his second toe it is warm Neuro: Awake and alert, GCS 15, oriented to person, place, time, and situation. Cranial nerves II-XII grossly intact. Motor strength 5/5 in all extremities. Sensory grossly intact. Psych: Awake, alert, with orientation to person, place and time. Behavior, mood, and affect are within normal limits. Vital Signs: 07:53 BP 132 / 88; Pulse 98; Resp 18; Temp 98.4(O); Pulse Ox 97% on R/A; Weight 95.25 kg; vg1 Height 6 ft. 1 in. ; Pain 10/10; 08:42 BP 149 / 81; Pulse 90; Resp 18 S; Pulse Ox 96% on R/A; kc6 09:29 BP 125 / 57; Pulse 90; Resp 17 S; Pulse Ox 97% on R/A; kc6 10:39 BP 127 / 65; Pulse 101; Resp 28 S; Pulse Ox 97% on R/A; kc6 07:53 Body Mass Index 27.71 (95.25 kg, 185.42 cm) vg1 07:53 Pain Scale: Adult vg1 MDM: 07:50 Patient medically screened. bs3 08:01 Differential diagnosis: cellulitis, pt with likely diabetic infection, likely will bs3 require surgery, possible amputation, will start antibiotics and plan admission vs transfer. Data reviewed: vital signs, nurses notes. 10:44 ED course: Patient with callus and osteomyelitis I contacted general surgery and we bs3 discussed the case and the plan was for likely amputation I discussed with Dr. Forde for admission and then I also discussed with the patient we had a long conversation we discussed that this needs urgent antibiotics and amputation otherwise he could lose his entire foot and lower leg they wanted to go to an outside facility specifically [facility] where he had his CABG they were at capacity therefore I discussed with the patient and his at bedside and they decided that they would drive there immediately will discharge to go to [facility], given a coyp of entire workup. . 03/10 08:00 Order name: Blood Culture Adult (2) bs3 03/10 08:00 Order name: CBC with Diff; Complete Time: 10:07 bs3 03/10 08:00 Order name: CMP; Complete Time: 10:07 bs3 03/10 08:00 Order name: Lactate w/ 2H reflex if indic.; Complete Time: 08:57 bs3 / 08:00 Order name: Protime (+inr); Complete Time: 08:56 bs3 / 08:00 Order name: Ptt, Activated; Complete Time: 08:56 bs3 03/10 08:14 Order name: Glucose, Ancillary Testing; Complete Time: 08:56 EDMS 03/10 08:59 Order name: CBC Smear Scan; Complete Time: 10:07 EDMS 03/10 10:40 Order name: CBC with Automated Diff EDMS 03/10 10:40 Order name: CBC with Automated Diff EDMS 03/10 10:40 Order name: Comprehensive Metabolic Panel EDMS 03/10 10:40 Order name: Comprehensive Metabolic Panel EDMS 03/10 08:00 Order name: Foot Right 3 View XRAY; Complete Time: 10:07 bs3 03/10 08:00 Order name: EKG; Complete Time: 08:01 bs3 03/10 10:40 Order name: CONS Physician Consult EDMS 03/10 10:40 Order name: NPO EDMS 03/10 08:00 Order name: Accucheck; Complete Time: 08:22 bs3 03/10 08:00 Order name: Cardiac monitoring; Complete Time: 08:22 bs3 03/10 08:00 Order name: EKG - Nurse/Tech; Complete Time: 08:29 bs3 03/10 08:00 Order name: IV Saline Lock - Large Bore; Complete Time: 08:29 bs3 03/10 08:00 Order name: Labs collected and sent; Complete Time: 08:29 bs3 03/10 08:00 Order name: O2 Per Protocol; Complete Time: 08:22 bs3 03/10 08:00 Order name: O2 Sat Monitoring; Complete Time: 08:22 bs3 03/10 08:00 Order name: Vital Signs; Complete Time: 08:22 bs3 Administered Medications: 08:33 Drug: Cefepime IVPB 1 grams Route: IVPB; Rate: 200 ml/hr; Infused Over: 30 mins; Site: kc6 right antecubital; 09:19 Follow up: Response: No adverse reaction; IV Status: Completed infusion; IV Intake: kc6 100ml 08:34 Drug: NS 0.9% IV 1000 ml Route: IV; Rate: 1 bolus; Site: right antecubital; jl7 10:46 Follow up: IV Status: Completed infusion; IV Intake: 1000ml kc6 09:12 Drug: vancoMYCIN IVPB 20 mg/kg Route: IVPB; Site: right antecubital; kc6 09:12 Drug: NS 0.9% IV 1000 ml Route: IV; Rate: 1000 ml; Site: right antecubital; kc6 10:46 Follow up: IV Status: Completed infusion; IV Intake: 1000ml kc6 11:04 Drug: Clindamycin PO 450 mg Route: PO; kc6 11:24 Follow up: Response: No adverse reaction kc6 Disposition Summary: 03/10/23 10:52 Discharge Ordered Location: Home bs3 Problem: new bs3 Symptoms: have improved bs3 Condition: Stable bs3 Diagnosis - Gangrene, not elsewhere classified bs3 - Cellulitis of unspecified toe bs3 Followup: bs3 - With: Emergency Department - When: Upon discharge from the Emergency Department - Reason: Discharge Instructions: - Discharge Summary Sheet bs3 - Cellulitis, Adult bs3 - Gangrene bs3 Forms: - Medication Reconciliation Form bs3 - Thank You Letter bs3 - Antibiotic Education bs3 - Prescription Opioid Use bs3 Signatures: Dispatcher [employer] Sophie Mancia RN RN jl7 Elizabeth Gudino RN RN vg1 Denisse Blackman RN RN kc6 Terrance Salazar MD MD bs3 Corrections: (The following items were deleted from the chart) 08:04 08:01 57-year-old male history of CAD status post bypass [id number] diabetes bs3 presents with right foot pain that has been progressive over the last several weeks he saw 1 doctor who wanted to do possible bunion surgery and then went to an urgent care yesterday who started him on antibiotics but his third toe started turning purple today and therefore he came in. bs3
[2023-03-10] MEDS ORDERED: Ringers Lactate 1,000 ML IV SCH (11:00)
[2023-03-10] MEDS ORDERED: VANCOMYCIN 1 GM in NA CHLORIDE 0.9% 250 ML IVPB ONE (11:00)
[2023-03-10 11:29] VITALS: TEMP 98.4
[2023-03-10] MEDS ORDERED: INSULIN -REGULAR HUMAN 50 UNIT/0.5 ML ML SQ SCH (11:30)
[2023-03-10 11:32] VITALS: O2SAT 97
[2023-03-10 11:34] VITALS: BP 127/65
[2023-03-10] MEDS ORDERED: Meropenem 500 MG in NA CHLORIDE 0.9% 100 ML IV SCH (17:00)
--- NOTE | 2023-03-11 04:35 | P.PN ---
Date of Service: 03/11/23 After reviewing ED documentation, it appears that patient was discharged from the ED in [facility] on 03/10/2023 at 10:52 even though admission orders had already been entered in [facility]. ED physician discussed with patient that his condition required urgent antibiotics and possible surgical intervention. Patient preferred to go to an outside facility, [facility], where he had a prior surgery done. Transfer was unable to be done as they were at capacity. Patient and his decided they would just drive straight to [facility] with the results of their work-up.
[2023-03-11] MEDS ORDERED: VANCOMYCIN 1 GM in NA CHLORIDE 0.9% 250 ML IVPB SCH ×4 (09:00)
--- NOTE | 2023-03-11 10:17 | EKG ---
Test Date: 2023-03-10 Test Time: 08:26:49 Facilitator: FLORINDA MEASUREMENT RESULTS: Intervals: Rate: 92 [place]: 172 QRSD: 96 QT: 386 QTc: 477 [place]: P: 63 [place]: 172 QRS: -64 T: 62 INTERPRETIVE STATEMENTS: Sinus rhythm with occasional premature ventricular complexes Left axis deviation Inferior infarct, age undetermined Abnormal ECG Compared to ECG 10/23/2011 16:51:02 Ventricular premature complex(es) now present Myocardial infarct finding now present T-wave abnormality no longer present Possible ischemia no longer present Electronically Signed On 03-11-23 10:13:53 CDT by Clemente Kay
== END 2023-03-10 11:24 | disposition home or self-care (01) ==
LOC: ER 07:47 → ERHOLD 10:34 → UNDOADMIN 10:34 → UNDODISIN 11:24
DX: E11.52 Type 2 diabetes mellitus with diabetic peripheral angiopathy with gangrene (principal); I96 Gangrene, not elsewhere classified; L03.031 Cellulitis of right toe; Z53.21 Procedure and treatment not carried out due to patient leaving prior to being seen by health care provider; M10.9 Gout, unspecified; I10 Essential (primary) hypertension; I25.10 Atherosclerotic heart disease of native coronary artery without angina pectoris; Z95.1 Presence of aortocoronary bypass graft
CPT/HCPCS: 96365; 96361; 93005; 87040 ×2; 85025; 36415; 87205 ×3; 85610; 82947; 83605 ×2; 85730; 87077 ×2; 87186 ×2; 80053; 73630; 96375; 99284; J7040; J7030 ×2; J0692